=== PATIENT | female | born 1975 | race Caucasian/White ===

== ENCOUNTER → 2020-01-14 15:52 | Outpatient (CLI) | payer BC, SELFPAY ==
[2020-01-14 18:17] LABS: Hematocrit 24.3 % (37-47); Mean Corp Hgb Conc 24.7 g/dL (32-36); Mean Corpuscular Hgb 17.6 pg (27.0-32.0); Mean Corpuscular Volume 71.3 fL (81-99); Mean Platelet Vol. 11.3 fl (6.2-12.0); Platelet Count 418 K/mm3 (150-450); RBC Distribution Width CV 18.5 % (11.6-14.6); RBC Distribution Width SD 45.3 fl (35.1-43.9); Red Blood Count 3.41 M/mm3 (4.2-5.4); White Blood Count 4.1 K/mm3 (4.4-11.0)
[2020-01-15 13:16] LABS: Pathologist Review Reviewed
== END ==
PROVIDERS: Nurse Practitioner Family; PCP Family Medicine; Referring Provider Family Medicine; Visit Provider Family Medicine
DX: R53.83 Other fatigue (principal)
CPT/HCPCS: 36415; 85027

== ENCOUNTER → 2020-01-15 10:38 | Outpatient (CLI) | payer BC, SELFPAY ==
[2020-01-15 12:10] LABS: Absolute Lymphocyte Count 0.82 X10^3/uL (0.83-4.51); Absolute Neutrophil Count 3.2 X10^3/uL (2.0-7.7); Basophil# 0.05 X10^3/uL; Basophil% 1.1 % (0-1); Eosinophil# 0.04 X10^3/uL; Eosinophils% 0.9 % (0-5); Hematocrit 24.9 % (37-47); Hemoglobin 6.1 g/dL (12.0-15.0); Lymphocyte # 0.82 X10^3/ul (4.0); Lymphocyte % 18.3 % (19-41); Mean Corp Hgb Conc 24.5 g/dL (32-36); Mean Corpuscular Hgb 17.6 pg (27.0-32.0); Mean Corpuscular Volume 71.8 fL (81-99); Monocyte# 0.35 X10^3/uL; Monocyte% 7.8 % (0-10); NRBC Flagged by Analyzer 0 % (0-5); Neutrophil # 3.18 X10^3/uL (2.7-7.7); Neutrophil % 71.2 % (47-70); Platelet Count 430 K/mm3 (150-450); RBC Distribution Width CV 18.6 % (11.6-14.6); RBC Distribution Width SD 46.1 fl (35.1-43.9); Red Blood Count 3.47 M/mm3 (4.2-5.4); White Blood Count 4.5 K/mm3 (4.4-11.0)
[2020-01-15 12:32] LABS: Ferritin 2 ng/mL (8-252); Iron 10 ug/dL (50-170); Iron Binding Capacity,Total 395 ug/dL (250-450)
== END ==
PROVIDERS: PCP Family Medicine; Referring Provider Family Medicine; Visit Provider Family Medicine
DX: D64.9 Anemia, unspecified (principal)
CPT/HCPCS: 36415; 82728; 83540; 83550; 85025

== ENCOUNTER 2020-01-15 11:27 | Inpatient (IN) | payer BC, SELFPAY ==
[2020-01-15] VITALS (21 sets, daily range): BP systolic 117–140; BP diastolic 69–86; PULSE 61–100; RESP 14–18; TEMP 36.4–37; O2SAT 98–100; BMI 20.9; BMI 20.2
--- NOTE | 2020-01-15 11:57 | ED.DCSUM_ITS ---
History of Present Illness Informant: Patient Onset: Weeks - Several weeks. Context: Gradual Onset Timing: Continuous Quality: fatigue and lightheadedness Location: everywhere Current Severity: Severe Maximum Severity: Severe Worsened by: activity Relieved by: nothing Associated Symptoms: Fatigue and lightheadedness Narrative: 45-year-old female who denies any significant past medical history presents to the emergency department with abnormal outpatient labs. She has been feeling weak tired and fatigued for several weeks and it has progressively worsened she followed with her primary care who did labs yesterday called her this morning to tell her her hemoglobin was 6. She denies history of similar. Her mom had a history of iron deficiency anemia. Patient was only on iron when she was remotely. She has not had any melena or hematochezia, hematemesis, coffee-ground emesis, hematuria, nosebleeds or bruising. No fevers chills night sweats or weight loss. She has had some heavy bleeding with her periods but states that that is normal for her and it does not seem worse than her baseline. She has never had a blood transfusion. Denies any medications. She has not had chest pain or shortness of breath. She has been eating and drinking norm ally. Prior similar symptoms: No Recent Illness/Hospitalization: No <Harmeet Crow - Last Filed: 01/15/20 14:13> <Praful Reed - Last Filed: 01/15/20 14:21> Chief Complaint: Abn Labs Past Medical History Prior records reviewed: Yes Past Medical History: None Surgical History: no surgical history Lives: With Family Smoking Status: Never smoker Alcohol: Occasional Drugs: None - Family History Maternal Family History: Reports: No pertinent history Paternal Family History: Reports: Heart Disease <Harmeet Crow - Last Filed: 01/15/20 14:13> <Praful Reed - Last Filed: 01/15/20 14:21> - Allergies and Home Meds Allergies/Adverse Reactions: Allergies Penicillins Allergy (Verified 01/15/20 11:29) Rash Review of Systems All systems negative except as indicated General: Reports: - - Fatigue. Denies: Chills, Fever, Sweats Eyes: Denies: Visual changes - bilaterally, Blurred Vision - bilaterally, Diplopia ENT: Denies: Rhinorrhea, Sore throat Cardiovascular: Denies: Chest pain, Palpitations Respiratory: Denies: Dyspnea, Cough, Dyspnea on exertion, Orthopnea, Paroxysmal nocturnal dyspnea Gastrointestinal: Denies: Abdominal pain, Nausea, Vomiting, Diarrhea, Const ipation, Melena, Hematochezia Genitourinary: Denies: Dysuria, Hematuria, Frequency Musculoskeletal: Denies: Myalgias, Arthralgias, Back pain, Swelling, Extremity Pain Skin: Denies: Rash, Wounds Neurological: Denies: Headache, Weakness, Parasthesia, Numbness Hematologic: Denies: Easy bruising, Easy bleeding <Harmeet Crow - Last Filed: 01/15/20 14:13> Physical Exam Vital Signs/Narrative: Vital Signs Temp Pulse Resp BP Pulse Ox 01/15/20 11:27 97.5 F L 100 14 130/69 H 100 Inital Vital Signs reviewed: Yes General: Well nourished, Well developed, No Acute Distress Head: Normocephalic, Atraumatic Eyes: Perrl, EOMI ENT: Moist mucous membranes, No rhinorrhea Neck: Supple, Nontender Cardiovascular: Regular rate, Regular rhythm, No murmurs Respiratory: No distress, CTA bilaterally, Chest nontender Abdomen: Soft, Nontender, Nondistended, Normal bowel sounds Back: Nontender, Normal Inspection Extremities: Nontender, No edema Skin: No rash, Pallor Neurological: Alert, Oriented x3, Cranial nerves II-XII grossly intact, Normal Strength, Normal Sensation, Normal Gait Psychological: Normal affect, Normal Mood <Harmeet Crow - Last Filed: 01/15/20 14:13> Vital Signs/Narrative: Vital Signs Temp Pulse Resp BP Pulse Ox 01/15/20 11:27 97.5 F L 100 14 130/69 H 100 <Praful Reed - Last Filed: 01/15/20 14:21> Diagnostic/Tx/Re-eval Chest X-Ray - ED: 2 View, Read by ED Physician, Read by Radiologist, No Acute Disease - Rhythm Strip Rhythm Strip: Sinus Rhythm Rate: 100 Ectopy: None - EKG Initial EKG Interpretation: Sinus Rhythm, No Acute Injury Pattern - Medical Decision Making Patient presents with normal stable vital signs. EKG was sinus rhythm without any signs of acute ischemia. Laboratory work-up shows a hemoglobin of 5.9. Iron studies done as an outpatient yesterday revealed low iron. However the patient is extremely symptomatic she is lightheaded and dizzy she gets short of breath with exertion and we feel she would benefit from admission. Her heart enzymes are negative. Hospitalist agreed to admit the patient. She was transfused 2 units of packed red blood cells. She remains hemodynamically stable. <Harmeet Crow - Last Filed: 01/15/20 14:13> - Medical Decision Making Patient had outpatient labs drawn yesterday and was noted to have a hemoglobin of 6. She had additional labs drawn this morning and was then sent to the emergency department because she is feeling weakness dyspnea on exertion. She has been trying to work out but is been harder than normal for her. She denies any black or bloody stools. Given her work-up here she will be admitted for transfusion. She will be set up with general surgery for scope next week. I performed a history and physical examination of the patient and discussed management plan with the physician microbiology lab assistant. I reviewed the physician microbiology lab assistant's note and agree with the documented findings and plan of care. Praful Reed DO, <Praful Reed - Last Filed: 01/15/20 14:21> ED Disposition <Harmeet Crow - Last Filed: 01/15/20 14:13> <Praful Reed - Last Filed: 01/15/20 14:21> - Plan for ED Patient: Disposition: Acute Care Hospital [facility] Diagnosis: Iron deficiency anemia, Symptomatic anemia
[2020-01-15 12:27] LABS: Absolute Lymphocyte Count 0.86 X10^3/uL (0.83-4.51); Absolute Neutrophil Count 3.5 X10^3/uL (2.0-7.7); Basophil# 0.03 X10^3/uL; Basophil% 0.6 % (0-1); Eosinophil# 0.03 X10^3/uL; Eosinophils% 0.6 % (0-5); Hematocrit 23.9 % (37-47); Lymphocyte # 0.86 X10^3/ul (4.0); Mean Corp Hgb Conc 24.7 g/dL (32-36); Mean Corpuscular Hgb 17.4 pg (27.0-32.0); Mean Corpuscular Volume 70.5 fL (81-99); Mean Platelet Vol. 10.8 fl (6.2-12.0); Monocyte# 0.37 X10^3/uL; Monocyte% 7.7 % (0-10); NRBC Flagged by Analyzer 0 % (0-5); Neutrophil # 3.47 X10^3/uL (2.7-7.7); Neutrophil % 72.5 % (47-70); POSITIVE COUNT YES; Platelet Count 419 K/mm3 (150-450); RBC Distribution Width CV 18.1 % (11.6-14.6); RBC Distribution Width SD 45.1 fl (35.1-43.9); Red Blood Count 3.39 M/mm3 (4.2-5.4); White Blood Count 4.8 K/mm3 (4.4-11.0)
[2020-01-15 12:30] LABS: Hemoglobin 5.9 g/dL (12.0-15.0)
[2020-01-15 12:34] LABS: International Normalized Ratio 1.1; Partial Thromboplast Time 26.6 Seconds (24.1-36.2); Prothrombin Time (Protime)PT. 13.2 SECONDS (11.7-14.9)
[2020-01-15 12:38] LABS: Anion Gap 3 (5-15); BUN 12 mg/dL (7-18); BUN/Creat Ratio 17.2 RATIO (10-20); Calcium,Total 8.3 mg/dL (8.5-10.1); Chloride 111 mmol/L (98-107); EST Glomerular Filtration Rate 97 mL/min (>60); Est Glom Filt Rate - Afr Amer 118 mL/min (>60); Estimated Creatinine Clearance 96.46 ml/min; Glucose 78 mg/dL (74-106); Potassium 3.7 mmol/L (3.5-5.1); Sodium Level 141 mmol/L (136-145)
--- NOTE | 2020-01-15 12:45 | EKG12_ITS ---
Test Reason : ABNL LABS Blood Pressure : / mmHG Vent. Rate : 093 BPM Atrial Rate : 093 BPM P-R Int : 160 ms QRS Dur : 086 ms QT Int : 372 ms P-R-T Axes : 089 044 059 degrees QTc Int : 462 ms Normal sinus rhythm Normal ECG Confirmed by ALEXANDRE RAMOS, SAMMY ([id number]), video news editor LUDWIN JON ([id number]) on 01/22/2020 11:22:31 A M Referred By: HETAL Confirmed By:SALLY SCHROEDER MD
--- NOTE | 2020-01-15 12:46 | RAD_ITS ---
STUDY: X-RAY CHEST REASON FOR EXAM: Female, 45 years old. Dyspnea, pt here for low hgb. pt also states that she is dizzy and her dr told her she may need a blood transfusion TECHNIQUE: Single AP portable view of the chest. COMPARISON: None. FINDINGS: The lungs are clear and expanded. There is nodular opacity at the right lung base that likely represent a nipple shadow. There is no demonstrated pleural abnormality. Normal size heart. Normal mediastinum and mir. Normal visualized pulmonary arteries. Normal visualized aortic arch and descending thoracic aorta. Normal visualized thoracic spine. There is healed fracture of the right clavicle. There is no demonstrated abnormality of the visualized soft tissue structures of the upper abdomen. RAD/Chest 1 View (Portable) IMPRESSION: No acute chest disease. Electronically Signed: Carlos Rhodes, at 13:03 EDT Tel , Service support ,
[2020-01-15 13:03] LABS: Internal QC Validated? YES +Cl - CLEAR BKGD; Pregnancy, Serum, hCG Quali. NEGATIVE Negative
--- NOTE | 2020-01-15 13:56 | HP.PCM_ITS ---
Problem List (1) Microcytic anemia Status: Acute (2) Iron deficiency anemia Status: Acute History of Present Illness Date of Admission: 01/15/20 Chief Complaint: Low hemoglobin, weakness, shortness of breath. The patient is a 45 year old F with no significant past medical history was referred to ER by her PCP for low hemoglobin. Yesterday, patient had blood work done and she was found to have hemoglobin of 6 g/dL. She was instructed to come to ED today for evaluation. Patient complained of exertional shortness of breath that has been going on for several years, it comes on when she climb the stairs, relieved with rest, associated with dizziness and profound fatigue and without relieving factors. She reported occasional heartburn but nothing significant. She mentioned that she has been having those symptoms for long time. She denied epistaxis, hemoptysis, hematemesis, melena, hematochezia, hematuria or skin bruises. She mentioned that her.'s are usually 5 to 6 days and with moderate amount of bleeding and she currently has had period With regular amount of bleeding. She denied personal or family history of bleeding disorders. She admitted using occasional ibuprofen for body aches and pains, she takes around 400 mg couple of days a week. In the emergency department, her vital signs were stable. Her routine blood work was remarkable for hemoglobin of 5.9 g/dL, MCV was 70.5. Platelet count, INR and pro time were normal. BMP was unremarkable. EKG revealed normal sinus rhythm, normal QRS, normal QTC, no acute segment changes or cardiac arrhythmias. Troponin was negative. Yeste rday, she had iron studies that revealed serum iron of 10, ferritin of 2, TIBC of 395. Her serum test was negative. She is being admitted for acute symptomatic iron deficiency anemia for blood transfusion. Past Medical History Allergies Penicillins Allergy (Verified 01/15/20 11:29) Rash Home Medications: Ambulatory Orders Medication Instructions Recorded NK 01/15/20 Surgical History: - - section. Dilatation and curettage. 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 Denies: Anorexia, Chills, Fever Eyes: Denies: Blurred vision, Double vision, Drainage, Redness HEENT: Denies: Difficulty Hearing, Ear Pain, Eye Pain, Nasal Congestion, Sore Throat Cardiovascular: Reports: Light Headedness. Denies: Chest Pain, Chest Pressure, Chest Tightness, Heaviness, Palpitations, Syncope Respiratory: Reports: Shortness of breath upon exertion. Denies: Cough, Hemoptysis, Pleuritic Pain, Sputum production, Wheezing Gastrointestinal: Denies: Abdominal Pain, Constipation, Diarrhea, Hematemesis, Hematochezia, Nausea, Melena, Vomiting Genitourinary: Denies: Dysuria, Frequency, Hematuria Musculoskeletal: Denies: Arm Pain, Back Pain, Foot Pain Skin: Denies: Dryness, Rash Neurological: Denies: Balance problems, Blurred vision, Double vision, Change in Speech, Slurred speech, Confusion, Incoordination, Numbness Psychiatric: Denies: Anxiety, Depression Endocrine: Denies: Change in Body Habitus, Polydipsia, Polyuria VTE Information - Inpt Only VTE Present on Admission: No VTE Mechan Device Prophylaxis: None VTE Pharm Prophylaxis ordered?: No Patient Problems: Active and Suspected Problems Microcytic anemia (Acute) Iron deficiency anemia (Acute) - Physical Exam Vitals/I&O's: Vital Signs Temp Pulse Resp BP Pulse Ox 98.5 F 92 18 136/80 H 100 01/15/20 13:52 01/15/20 13:52 01/15/20 13:52 01/15/20 13:52 01/15/20 13:52 Oxygen Delivery Method Room Air Weight: 130 lb Body Mass Index (BMI) 20.9 Intake and Output for Last 24 Hours 01/13/20 01/14/20 01/15/20 23:59 23:59 23:59 Intake Total 0 / 0 Balance 0 / 0 General: Alert, Oriented x3, Cooperative, No apparent distress, - - Very pale, no jaundice. HEENT: Atraumatic, PERRLA, EOMI, Normocephalic Oral: Moist Mucosa, No Gingival or Mucosal Lesions/ Ulcerations Neck: Supple, No JVD, Negative Carotid Bruits, Trachea Midline, Thyroid Normal Size and Texture Lungs: Clear to auscultation, Normal air movement, No rhonchi, No wheeze, No rales Cardiovascular: Regular rate, Regular Rhythm, Normal S1, Normal S2, No murmurs, PMI Normal Abdomen: Bowel Sounds Present, Soft, Non Tender, Non-Distended, No Hepato- splenomegaly Extremities: No clubbing, No cyanosis, No edema Skin: No rashes, No breakdown Lymphatic: No Cervical, Supraclavicular, or Inguinal Adenopathy Neurological: Cranial nerves II-XII grossly intact, Motor Exam 5/5 strength throughout Psych/Mental Status: Normal Affect, Appropriate, Alert and oriented to time, place, person, mood and affect Laboratory Results 01/15/20 12:00: WBC 4.8, RBC 3.39 L, Hgb 5.9 L*, Hct 23.9 L, MCV 70.5 L, MCH 17.4 L, MCHC 24.7 L, RDW Std Deviation 45.1 H, RDW Coeff of Marci 18.1 H, Plt Count 419, MPV 10.8, Immature Gran % (Auto) 0.600, Neut % (Auto) 72.5 H, Lymph % (Auto) 18.0 L, [place] % (Auto) 7.7, Eos % (Auto) 0.6, Baso % (Auto) 0.6, Absolute Neuts (auto) 3.5, Absolute Lymphs (auto) 0.86, Nucleated RBC % 0, Diff Path Review September01/15/20 12:00: Sodium 141, Potassium 3.7, Chloride 111 H, Carbon Dioxide 27.0, Anion Gap 3 L, BUN 12, Creatinine 0.70, Estim Creat Clear Calc 96.46, Est GFR (MDRD) Af Amer 118, Est GFR (MDRD) Non-Af 97, BUN/Creatinine Ratio 17.2, Glucose 78, Calcium 8.3 L 01/15/20 12:00: Blood Type O POSITIVE, Antibody Screen NEGATIVE 01/15/20 12:00: PT 13.2, INR 1.1, APTT 26.6 01/15/20 12:00: Serum , Qual NEGATIVE 01/15/20 12:00: Crossmatch See Detail 01/15/20 12:00: Troponin I < 0.015 Clinical Impression(s) from Imaging Studies Chest X-Ray 01/15/20 12:46 IMPRESSION: No acute chest disease. Electronically Signed: Carlos Rhodes, at 13:03 EDT Tel , Service support , Assessment/Plan All Active Problems Microcytic anemia (Acute) Iron deficiency anemia (Acute) This is a 45 years old female patient was sent to the ER by her PCPs office because of low hemoglobin with symptoms of exertional shortness of breath, dizziness and weakness that has been going on for long time, found to have acute iron deficiency anemia and she is being admitted for evaluation and treatment. #1 acute microcytic/iron deficiency symptomatic anemia: Hemoglobin is 5.9 g/dL. Her vital signs are stable. She denies any bleeding from body orifices. She does have her period currently but her regular period is around 5 days with moderate amount of bleeding and nothing usual. She admitted using ibuprofen intermittently. Denied melena or hematochezia. Yesterday, she had blood work and her iron was 10 and ferritin was 2. Her platelet count, pro time and INR were normal. She is not actively bleeding. Plan: Admit to PCU, cardiac monitoring, gentle IV fluids for hydration, check serum TSH, start p.o. iron supplement, transfuse total of 3 months of packed RBCs, stool for occult blood, start IV Protonix twice daily, general surgery consult, repeat CBC and BMP tomorrow morning. #2 DVT prophylaxis: Low risk patient, no prophylaxis indicated. Ambulate. This note was generated with Ampulse dictation software. It may contain incorrect words, spelling, and punctuation that were not noted in checking the note before signing. Inpatient E&M: 57402 Init Hosp L2
--- NOTE | 2020-01-15 14:14 | PCM.CONS.GEN ---
Reason for Consult Date of Consultation: 01/15/20 History of Present Illness: The patient is a 45 year old F presented after labs showed anemia. The patient reports she has been tired fatigued with dizziness for few months to a year. The patient does not have any abdominal pain or blood in her stool. She denies melena or nausea or vomiting. She has never had scopes in the past. Past Medical History Allergies Penicillins Allergy (Verified 01/15/20 11:29) Rash Home Medications: Ambulatory Orders Medication Instructions Recorded NK 01/15/20 Surgical History: - - section. Dilatation and curettage. 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 Denies: Anorexia, Fever HEENT: Denies: Difficulty Hearing, Difficulty Swallowing Cardiovascular: Reports: Palpitations. Denies: Chest Pain Respiratory: Denies: Cough, Shortness of Breath Gastrointestinal: Denies: Abdominal Pain, Hematemesis, Hematochezia, Nausea, Melena, Vomiting Genitourinary: Denies: Dysuria Skin: Denies: Jaundice Neurological: Denies: Balance problems Hematologic/ Lymphatic: Reports: Anemia Patient Problems: Active and Suspected Problems Microcytic anemia (Acute) Iron deficiency anemia (Acute) - Physical Exam Vitals/I&O's: Vital Signs Temp Pulse Resp BP Pulse Ox 98.6 F 92 18 134/83 H 100 01/15/20 13:57 01/15/20 13:57 01/15/20 13:57 01/15/20 13:57 01/15/20 13:57 Oxygen Delivery Method Room Air Weight: 130 lb Body Mass Index (BMI) 20.9 Intake and Output for Last 24 Hours 01/13/20 01/14/20 01/15/20 23:59 23:59 23:59 Intake Total 0 / 0 Balance 0 / 0 General: Alert, Oriented x3 Lungs: Normal air movement Abdomen: Soft, Non Tender, Non-Distended Laboratory Results 01/15/20 12:00: WBC 4.8, RBC 3.39 L, Hgb 5.9 L*, Hct 23.9 L, MCV 70.5 L, MCH 17.4 L, MCHC 24.7 L, RDW Std Deviation 45.1 H, RDW Coeff of Marci 18.1 H, Plt Count 419, MPV 10.8, Immature Gran % (Auto) 0.600, Neut % (Auto) 72.5 H, Lymph % (Auto) 18.0 L, [place] % (Auto) 7.7, Eos % (Auto) 0.6, Baso % (Auto) 0.6, Absolute Neuts (auto) 3.5, Absolute Lymphs (auto) 0.86, Nucleated RBC % 0, Diff Path Review September01/15/20 12:00: Sodium 141, Potassium 3.7, Chloride 111 H, Carbon Dioxide 27.0, Anion Gap 3 L, BUN 12, Creatinine 0.70, Estim Creat Clear Calc 96.46, Est GFR (MDRD) Af Amer 118, Est GFR (MDRD) Non-Af 97, BUN/Creatinine Ratio 17.2, Glucose 78, Calcium 8.3 L 01/15/20 12:00: Blood Type O POSITIVE, Antibody Screen NEGATIVE 01/15/20 12:00: PT 13.2, INR 1.1, APTT 26.6 01/15/20 12:00: Serum , Qual NEGATIVE 01/15/20 12:00: Crossmatch See Detail 01/15/20 12:00: Troponin I < 0.015 Assessment/Plan All Active Problems Microcytic anemia (Acute) Iron deficiency anemia (Acute) 45-year-old female with iron deficiency anemia 1. The patient has iron deficiency anemia. She denies any gross blood loss. I have asked for an occult blood test as well as a COVID test in anticipation of outpatient endoscopy. The patient is being admitted for observation and as long as she is not grossly losing any blood I will perform an upper and lower endoscopy on her next week. I discussed this with her in detail. Plan for next Saturday. I will see her tomorrow and discussed bowel prep with her. 2. I explained endoscopy in detail to the patient. I explained the risks including but not limited to stroke or heart attack with anesthesia, perforation of the GI tract, bleeding, infection. I explained that any of these could necessitate further emergency surgery. The patient understands and all questions were answered sufficiently. The patient wishes to proceed with procedure. We discussed the current risks associated with COVID-19. While it is understood that there is a community spread of COVID-19, the risk of dipesh COVID-19 while at [facility] ([facility]) is very low; however, the risk cannot be completely mitigated because of the community spread of the disease. We discussed in detail the risk of exposure to and/or potential harm posed by the COVID-19 virus with having a surgery/procedure at this time versus the risk of delaying the surgery/procedure. It is not possible to know either the risk of delaying the surgery or procedure or chance of getting an infection with perfect accuracy, but a joint decision was made to proceed at this time with the scheduled surgery/procedure as indicated on the consent form. Patient was notified that we will need to comply with any screening or testing [facility] wishes to perform or that surgery may be delayed for any positive results. Harmeet Llanos MD Pager: [facility] [address] [place] [address] [address] [place] [address] Office:
[2020-01-15 16:07] LABS: Thyroid Stim Hormone (TSH) 0.04 uIU/mL (0.358-3.74)
[2020-01-15] MEDS: Acetaminophen 325 MG Tablet 650 MG PO (18:03)
[2020-01-15] MEDS: Ferrous Sulfate 325 MG Tablet PO (18:03)
[2020-01-15] MEDS: 0.9% Normal Saline 1,000 ML 75 ML IV (21:59)
[2020-01-15] MEDS: MELATONIN 3 MG TABLET PO (23:58)
[2020-01-16] MEDS: Acetaminophen 325 MG Tablet 650 MG PO (00:03)
[2020-01-16 00:06] VITALS: BP 111/63; PULSE 60; RESP 16; TEMP 36.8; O2SAT 98
[2020-01-16 03:00] VITALS: PULSE 66
[2020-01-16 05:07] VITALS: BP 115/71; PULSE 57; RESP 16; TEMP 36.7; O2SAT 99
[2020-01-16 06:24] LABS: Absolute Lymphocyte Count 1.25 X10^3/uL (0.83-4.51); Absolute Neutrophil Count 2.6 X10^3/uL (2.0-7.7); Basophil# 0.06 X10^3/uL; Basophil% 1.3 % (0-1); Eosinophil# 0.11 X10^3/uL; Eosinophils% 2.4 % (0-5); Hematocrit 31.7 % (37-47); Hemoglobin 8.8 g/dL (12.0-15.0); Lymphocyte # 1.25 X10^3/ul (4.0); Lymphocyte % 27.8 % (19-41); Mean Corp Hgb Conc 27.8 g/dL (32-36); Mean Corpuscular Hgb 21.1 pg (27.0-32.0); Mean Corpuscular Volume 75.8 fL (81-99); Monocyte% 11.1 % (0-10); NRBC Flagged by Analyzer 0 % (0-5); Neutrophil # 2.56 X10^3/uL (2.7-7.7); POSITIVE MORPHOLOGY YES; Platelet Count 365 K/mm3 (150-450); RBC Distribution Width CV 20.2 % (11.6-14.6); RBC Distribution Width SD 54.7 fl (35.1-43.9); Red Blood Count 4.18 M/mm3 (4.2-5.4); White Blood Count 4.5 K/mm3 (4.4-11.0)
[2020-01-16 06:28] LABS: Differential Indicated SCAN CRITERIA MET
[2020-01-16 06:41] VITALS: PULSE 64
[2020-01-16 06:56] LABS: Microcytosis 3+
[2020-01-16 06:57] LABS: Anion Gap 3 (5-15); BUN 11 mg/dL (7-18); BUN/Creat Ratio 15.6 RATIO (10-20); Chloride 112 mmol/L (98-107); EST Glomerular Filtration Rate 97 mL/min (>60); Est Glom Filt Rate - Afr Amer 117 mL/min (>60); Estimated Creatinine Clearance 93.05 ml/min; Glucose 78 mg/dL (74-106); Hypochromasia 3+; Ovalocyte 2+; Potassium 3.4 mmol/L (3.5-5.1); Schistocytes 1+; Sodium Level 142 mmol/L (136-145)
[2020-01-16 07:18] VITALS: O2SAT 95
[2020-01-16] MEDS: Ferrous Sulfate 325 MG Tablet PO (07:34)
--- NOTE | 2020-01-16 08:04 | PCM.PN.SRG ---
Patient Problems: Active and Suspected Problems Symptomatic anemia (Acute) Microcytic anemia (Acute) Iron deficiency anemia (Acute) Subjective: Patient feels much better today. Still no gross blood per stool - Physical Exam Vitals/I&O's: Vital Signs Temp Pulse Resp BP Pulse Ox 98.0 F 64 16 115/71 99 01/16/20 05:07 01/16/20 06:41 01/16/20 05:07 01/16/20 05:07 01/16/20 05:07 Oxygen Delivery Method Room Air Weight: 125 lb 6.4 oz Body Mass Index (BMI) 20.2 Intake and Output for Last 24 Hours 01/14/20 01/15/20 01/16/20 23:59 23:59 23:59 Intake Total 1772 / 1772 100 / 100 Balance 1772 / 1772 100 / 100 General: Alert, Oriented x3 Neck: No JVD Cardiovascular: Regular rate, Regular Rhythm Abdomen: Soft, Non Tender, Non-Distended Microbiology Past 72 Hours 01/15/20 14:56 Stool Stool Occult Blood (AVA) - Final Occult Blood Positive Laboratory Results 01/15/20 12:00: WBC 4.8, RBC 3.39 L, Hgb 5.9 L*, Hct 23.9 L, MCV 70.5 L, MCH 17.4 L, MCHC 24.7 L, RDW Std Deviation 45.1 H, RDW Coeff of Marci 18.1 H, Plt Count 419, MPV 10.8, Immature Gran % (Auto) 0.600, Neut % (Auto) 72.5 H, Lymph % (Auto) 18.0 L, [place] % (Auto) 7.7, Eos % (Auto) 0.6, Baso % (Auto) 0.6, Absolute Neuts (auto) 3.5, Absolute Lymphs (auto) 0.86, Nucleated RBC % 0, Diff Path Review September01/15/20 12:00: Sodium 141, Potassium 3.7, Chloride 111 H, Carbon Dioxide 27.0, Anion Gap 3 L, BUN 12, Creatinine 0.70, Estim Creat Clear Calc 96.46, Est GFR (MDRD) Af Amer 118, Est GFR (MDRD) Non-Af 97, BUN/Creatinine Ratio 17.2, Glucose 78, Calcium 8.3 L 01/15/20 12:00: Blood Type O POSITIVE, Antibody Screen NEGATIVE 01/15/20 12:00: PT 13.2, INR 1.1, APTT 26.6 01/15/20 12:00: Serum , Qual NEGATIVE 01/15/20 12:00: Crossmatch See Detail 01/15/20 12:00: Troponin I < 0.015 01/15/20 12:00: TSH 0.04 L 01/15/20 12:00: Crossmatch See Detail 01/15/20 14:36: COVID-19 (DEBORAH) Pending 01/16/20 05:05: WBC 4.5, RBC 4.18 L, Hgb 8.8 L, Hct 31.7 L, MCV 75.8 L D, MCH 21.1 L, MCHC 27.8 L D, RDW Std Deviation 54.7 H, RDW Coeff of Marci 20.2 H, Plt Count 365, MPV 11.0, Immature Gran % (Auto) 0.400, Neut % (Auto) 57.0, Lymph % (Auto) 27.8, [place] % (Auto) 11.1 H, Eos % (Auto) 2.4, Baso % (Auto) 1.3 H, Absolute Neuts (auto) 2.6, Absolute Lymphs (auto) 1.25, Nucleated RBC % 0, Hypochromasia 3+, Microcytosis 3+, Ovalocytes 2+, Schistocytes 1+ 01/16/20 05:05: Sodium 142, Potassium 3.4 L, Chloride 112 H, Carbon Dioxide 27.0, Anion Gap 3 L, BUN 11, Creatinine 0.70, Estim Creat Clear Calc 93.05, Est GFR (MDRD) Af Amer 117, Est GFR (MDRD) Non-Af 97, BUN/Creatinine Ratio 15.6, Glucose 78, Calcium 8.0 L Current Medications Acetaminophen (Tylenol) 650 mg PO Q6H PRN PRN PRN Reason: Pain Score 1-10/Temp > 100.7 F Last Admin: 01/16/20 00:03 Dose: 650 mg Documented by: Ferrous Sulfate (Ferrous Sulfate) 325 mg PO TIDCM [facility] Last Admin: 01/16/20 07:34 Dose: 325 mg Documented by: Sodium Chloride () 1,000 mls @ 75 mls/hr IV .[id number] [facility] Last Admin: 01/15/20 21:59 Dose: 75 mls/hr Documented by: Pantoprazole Sodium 40 mg/ (Sodium Chloride) 110 mls @ 330 mls/hr IV Q12 [facility] Last Infusion: 01/15/20 22:05 Dose: 0 mls/hr Documented by: Sodium Chloride () 500 mls @ 15 mls/hr IV PRN PRN PRN Reason: Blood Transfusion Sodium Chloride () 250 mls @ 15 mls/hr IV .[id number] PRN PRN Reason: Saline Flush Sodium Chloride () 250 mls @ 15 mls/hr IV .[id number] PRN PRN Reason: Additional IVPB Infusion Melatonin (Melatonin) 3 mg PO QHS PRN PRN Reason: INSOMNIA Last Admin: 01/15/20 23:58 Dose: 3 mg Documented by: Ondansetron HCl (Zofran) 4 mg IV Q8H PRN PRN PRN Reason: NAUSEA/VOMITING Senna/Docusate Sodium (Senokot-S, Emelina-Colace) 2 tablet PO BID PRN PRN PRN Reason: Constipation Sodium Chloride () 10 - 40 ml IV UD PRN PRN Reason: SALINE FLUSH Medical Necessity - Tobacco Use Smoking Status: Never smoker Assessment/Plan All Active Problems Symptomatic anemia (Acute) Microcytic anemia (Acute) Iron deficiency anemia (Acute) 45-year-old female with iron deficiency anemia 1. Patient feels much better after transfusions. Still no gross blood per rectum. I gave her bowel prep instructions today and I will schedule her for EGD and colonoscopy this coming Saturday. She may be discharged home. Harmeet Llanos MD Pager: [facility] [address] [place] [address], [address] [place] [address] Office:
[2020-01-16 09:01] VITALS: BP 128/76; PULSE 86; RESP 16; TEMP 36.7; O2SAT 100
[2020-01-16 09:36] LABS: Free T3 2.6 pg/mL (2.18-3.98); T4 Free Direct 1.07 ng/dL (0.76-1.46)
--- NOTE | 2020-01-16 10:31 | CASEMGMT ---
Addendum entered by Arsen Gaines 01/16/20 10:42: Patient is to f/u with surgery for endoscopy in a week. Original Note: RN CM Assessment Note Intro role of CM to patient in room. Pt is independent, denies dc needs. Presentation: outpatient blood work completed and pt had low hemoglobin Diagnosis: anemia, H/H 5.9/23.9, 3 units PRBC PCP: Dr. Palomino Insurance: [place]. Preferred Pharmacy: [facility] Prescription Benefit: yes LNOK: Franc Stewart Living Arrangements: Lives independently, no care needs. Tranportation: drives DME: none Patient DC Goals: Home DC Plan: Home on discharge. Poornima CORONADO RN ACM
--- NOTE | 2020-01-16 10:40 | DCINST_ITS ---
- Discharge Diagnoses Current Active Problems: Current Active and Chronic Problems Symptomatic anemia (Acute) Microcytic anemia (Acute) Iron deficiency anemia (Acute) You will use the following diet at home:: No restrictions Your food should be the consistency of: Regular Your liquids should be the consistency of: Regular/Thin Discharge Activity: Return to Normal Activity Call your doctor if you observe: Shortness of breath, Dizziness, Fainting spells Allergies/Adverse Reactions: Allergies Penicillins Allergy (Verified 01/15/20 11:29) Rash Medications to take at Discharge Acetaminophen [Tylenol Tablet] 650 mg PO Q6H PRN PRN tablet 01/16/20 Ferrous Sulfate 325 mg PO TIDCM #30 tab 01/16/20 Pantoprazole Sodium [Protonix] 40 mg PO BID #60 tab 01/16/20 The following prescriptions were given: Ferrous Sulfate 325 mg PO TIDCM #30 tab Transmission Status: Pending to [facility]/pharmacy #[id number] Pantoprazole Sodium [Protonix] 40 mg PO BID #60 tab Transmission Status: Pending to [facility]/pharmacy #[id number] Primary Care Physician: Nikolai Palomino MD [Primary Care Provider] - Please follow up with your Primary Care Physician in: 1-2 weeks Test Results: Test results from this visit will be discussed in further detail at your follow- up appointment, if applicable. Please Follow Up With: Harmeet Llanos MD When: 1 week Proposed Discharge Date: 01/16/20
--- NOTE | 2020-01-16 11:37 | PCM.DC.SUM ---
<Rajiv Peralta - Last Filed: 01/16/20 11:37> Discharge Date and Diagnosis - Problem List Patient Problems: Active and Suspected Problems Microcytic anemia (Acute) Date of Admission: 01/15/20 Date of Discharge: 01/16/20 - Primary Discharge Diagnosis Acute Problems: Active Problems Iron deficiency anemia with positive Hemoccult stools, presumed GI bleed, unclear etiology GERD Hospital Course and Treatment Imaging Results: RAD/Chest 1 View (Portable) IMPRESSION: No acute chest disease. Consults: Viet - Gen Surg Operations: None Procedures: None Summary of Care Provided: Hospital Course: The patient is a 45 year old F who presents to the emergency room with abnormal labs-low hemoglobin found by her PCP. She had been having some weakness and shortness of breath at home. She was found to have a hemoglobin of 6. She came to the emergency room and hemoglobin was 5.9. She also had iron studies tested as an outpatient and was found to have a ferritin of 2 and iron level of 10. She was significantly microcytic. She had a Hemoccult that was positive. She had not been having any black, tarry, or bloody stools. She had been taking NSAIDs [id number] at home. She denied any significant abdominal pain. She did report intermittent acid reflux. She was placed on Protonix twice daily. She was admitted to the PCU on telemetry. She was transfused with 3 units of packed red blood cells with adequate response in hemoglobin. She was seen by general surgery who recommended outpatient endoscopy. She was advised that she discontinue all NSAID use. She was discharged on Protonix twice daily, iron replacement as well as vitamin C, and discharge to home in stable condition. She will follow-up with general surgery next week, and should follow-up with her PCP in 1 to 2 weeks. This patient was seen by Rajiv Peralta PA-C under the supervision of Doctor Doreen. [] Patient Problems: Active and Suspected Problems Microcytic anemia (Acute) - Physical Exam Vitals/I&O's: Vital Signs Temp Pulse Resp BP Pulse Ox 98.0 F 86 16 128/76 H 100 01/16/20 09:01 01/16/20 09:01 01/16/20 09:01 01/16/20 09:01 01/16/20 09:01 Oxygen Delivery Method Room Air Weight: 125 lb 6.4 oz Body Mass Index (BMI) 20.2 Intake and Output for Last 24 Hours 01/14/20 01/15/20 01/16/20 23:59 23:59 23:59 Intake Total 1772 Balance 1772 General: Alert, Oriented x3, Cooperative HEENT: Atraumatic, PERRLA, EOMI, Normocephalic Neck: Supple, No JVD, Negative Carotid Bruits Lungs: Clear to auscultation, Normal air movement Cardiovascular: Regular rate, No murmurs Abdomen: Bowel Sounds Present, Soft, Non Tender Extremities: No edema, Capillary Refill Less than 3 Seconds Skin: No rashes, No breakdown Musculoskeletal: No Tenderness to Palpation of Joints or Extremities Neurological: Cranial nerves II-XII grossly intact Psych/Mental Status: Normal Affect, Appropriate, Alert and oriented to time, place, person, mood and affect Microbiology Past 72 Hours 01/15/20 14:56 Stool Stool Occult Blood (AVA) - Final Occult Blood Positive Laboratory Results 01/15/20 12:00: WBC 4.8, RBC 3.39 L, Hgb 5.9 L*, Hct 23.9 L, MCV 70.5 L, MCH 17.4 L, MCHC 24.7 L, RDW Std Deviation 45.1 H, RDW Coeff of Marci 18.1 H, Plt Count 419, MPV 10.8, Immature Gran % (Auto) 0.600, Neut % (Auto) 72.5 H, Lymph % (Auto) 18.0 L, Churchill % (Auto) 7.7, Eos % (Auto) 0.6, Baso % (Auto) 0.6, Absolute Neuts (auto) 3.5, Absolute Lymphs (auto) 0.86, Nucleated RBC % 0, Diff Path Review September01/15/20 12:00: Sodium 141, Potassium 3.7, Chloride 111 H, Carbon Dioxide 27.0, Anion Gap 3 L, BUN 12, Creatinine 0.70, Estim Creat Clear Calc 96.46, Est GFR (MDRD) Af Amer 118, Est GFR (MDRD) Non-Af 97, BUN/Creatinine Ratio 17.2, Glucose 78, Calcium 8.3 L 01/15/20 12:00: Blood Type O POSITIVE, Antibody Screen NEGATIVE 01/15/20 12:00: PT 13.2, INR 1.1, APTT 26.6 01/15/20 12:00: Serum , Qual NEGATIVE 01/15/20 12:00: Crossmatch See Detail 01/15/20 12:00: Troponin I < 0.015 01/15/20 12:00: TSH 0.04 L 01/15/20 12:00: Crossmatch See Detail 01/15/20 14:36: COVID-19 (DEBORAH) Pending 01/16/20 05:05: WBC 4.5, RBC 4.18 L, Hgb 8.8 L, Hct 31.7 L, MCV 75.8 L D, MCH 21.1 L, MCHC 27.8 L D, RDW Std Deviation 54.7 H, RDW Coeff of Marci 20.2 H, Plt Count 365, MPV 11.0, Immature Gran % (Auto) 0.400, Neut % (Auto) 57.0, Lymph % (Auto) 27.8, Churchill % (Auto) 11.1 H, Eos % (Auto) 2.4, Baso % (Auto) 1.3 H, Absolute Neuts (auto) 2.6, Absolute Lymphs (auto) 1.25, Nucleated RBC % 0, Hypochromasia 3+, Microcytosis 3+, Ovalocytes 2+, Schistocytes 1+ 01/16/20 05:05: Sodium 142, Potassium 3.4 L, Chloride 112 H, Carbon Dioxide 27.0, Anion Gap 3 L, BUN 11, Creatinine 0.70, Estim Creat Clear Calc 93.05, Est GFR (MDRD) Af Amer 117, Est GFR (MDRD) Non-Af 97, BUN/Creatinine Ratio 15.6, Glucose 78, Calcium 8.0 L 01/16/20 05:05: Free T4 1.07, Free T3 pg/dL 2.6 Discharge Diet: Low fat/ Low Cholesterol, 2000 mg Sodium Diet Discharge Activity: Return to Normal Activity Call your doctor if you observe: Shortness of breath, Dizziness, Fainting spells Home Medications: Medications to take at Discharge Acetaminophen [Tylenol Tablet] 650 mg PO Q6H PRN PRN tab 01/16/20 Ascorbic Acid [Vitamin C] 500 mg PO TID #90 tab 01/16/20 Ferrous Sulfate 325 mg PO TIDCM #30 tab 01/16/20 Pantoprazole Sodium [Protonix] 40 mg PO BID #60 tab 01/16/20 Following Prescriptions Were Given to Patient: Ferrous Sulfate 325 mg PO TIDCM #30 tab Transmission Status: Received by [facility]/pharmacy #[id number] Pantoprazole Sodium [Protonix] 40 mg PO BID #60 tab Transmission Status: Received by [id number] Ascorbic Acid [Vitamin C] 500 mg PO TID #90 tab Transmission Status: Received by [id number] Primary Care Physician: Nikolai Palomino MD [Primary Care Provider] - Please follow up with your Primary Care Physician in: 1-2 weeks Please Follow Up With: Harmeet Llanos MD When: 1 week Disposition: Home Minutes spent on discharge:: 35 Patient Condition:: Stable Medical Necessity - Tobacco Use Smoking Status: Never smoker Meaningful Use Info Meaningful Use Diagnoses (Choose all that apply): None applicable <Chirag Logan F - Last Filed: 01/16/20 11:50> Discharge Date and Diagnosis - Primary Discharge Diagnosis Acute Problems: Active Problems Microcytic anemia (Acute) Hospital Course and Treatment Summary of Care Provided: The patient is a 45 year old F [] - Physical Exam Vitals/I&O's: Vital Signs Temp Pulse Resp BP Pulse Ox 98.0 F 86 16 128/76 H 100 01/16/20 09:01 01/16/20 09:01 01/16/20 09:01 01/16/20 09:01 01/16/20 09:01 Oxygen Delivery Method Room Air Weight: 125 lb 6.4 oz Body Mass Index (BMI) 20.2 Intake and Output for Last 24 Hours 01/14/20 01/15/20 01/16/20 23:59 23:59 23:59 Intake Total 1773 / 1773 210 / 210 Balance 1773 / 1773 210 / 210 Microbiology Past 72 Hours 01/15/20 14:56 Stool Stool Occult Blood (AVA) - Final Occult Blood Positive Laboratory Results 01/15/20 12:00: WBC 4.8, RBC 3.39 L, Hgb 5.9 L*, Hct 23.9 L, MCV 70.5 L, MCH 17.4 L, MCHC 24.7 L, RDW Std Deviation 45.1 H, RDW Coeff of Marci 18.1 H, Plt Count 419, MPV 10.8, Immature Gran % (Auto) 0.600, Neut % (Auto) 72.5 H, Lymph % (Auto) 18.0 L, Churchill % (Auto) 7.7, Eos % (Auto) 0.6, Baso % (Auto) 0.6, Absolute Neuts (auto) 3.5, Absolute Lymphs (auto) 0.86, Nucleated RBC % 0, Diff Path Review September01/15/20 12:00: Sodium 141, Potassium 3.7, Chloride 111 H, Carbon Dioxide 27.0, Anion Gap 3 L, BUN 12, Creatinine 0.70, Estim Creat Clear Calc 96.46, Est GFR (MDRD) Af Amer 118, Est GFR (MDRD) Non-Af 97, BUN/Creatinine Ratio 17.2, Glucose 78, Calcium 8.3 L 01/15/20 12:00: Blood Type O POSITIVE, Antibody Screen NEGATIVE 01/15/20 12:00: PT 13.2, INR 1.1, APTT 26.6 01/15/20 12:00: Serum , Qual NEGATIVE 01/15/20 12:00: Crossmatch See Detail 01/15/20 12:00: Troponin I < 0.015 01/15/20 12:00: TSH 0.04 L 01/15/20 12:00: Crossmatch See Detail 01/15/20 14:36: COVID-19 (DEBORAH) Pending 01/16/20 05:05: WBC 4.5, RBC 4.18 L, Hgb 8.8 L, Hct 31.7 L, MCV 75.8 L D, MCH 21.1 L, MCHC 27.8 L D, RDW Std Deviation 54.7 H, RDW Coeff of Marci 20.2 H, Plt Count 365, MPV 11.0, Immature Gran % (Auto) 0.400, Neut % (Auto) 57.0, Lymph % (Auto) 27.8, Churchill % (Auto) 11.1 H, Eos % (Auto) 2.4, Baso % (Auto) 1.3 H, Absolute Neuts (auto) 2.6, Absolute Lymphs (auto) 1.25, Nucleated RBC % 0, Hypochromasia 3+, Microcytosis 3+, Ovalocytes 2+, Schistocytes 1+ 01/16/20 05:05: Sodium 142, Potassium 3.4 L, Chloride 112 H, Carbon Dioxide 27.0, Anion Gap 3 L, BUN 11, Creatinine 0.70, Estim Creat Clear Calc 93.05, Est GFR (MDRD) Af Amer 117, Est GFR (MDRD) Non-Af 97, BUN/Creatinine Ratio 15.6, Glucose 78, Calcium 8.0 L 01/16/20 05:05: Free T4 1.07, Free T3 pg/dL 2.6 Addendum: Dr. Logan I personally examined the patient and reviewed the chart. I agree with the above. 45-year-old female presents with shortness of breath and acute microcytic anemia secondary to severe iron deficiency with an iron level of 10 and a ferritin of 2 as well as a positive fecal occult. She states that she takes Advil most days secondary to muscle soreness. She was transfused 3 units and responded appropriately from 5.8-8.8. She feels much better today would like to go home. I did offer her to stay till the afternoon to recheck her hemoglobin to make sure he was stable but she would prefer to go home. She was started on p.o. iron as well as a PPI secondary to the Hemoccult and her NSAID use. She will follow-up with general surgery as an outpatient for colonoscopy and possible EGD. She was also started on vitamin C to help with the absorption of iron secondary to her PPI use. I discussed the plan for discharge today and she expressed understanding the risks and benefits of going home. She is to come back to the hospital or call her PCP if she is to develop any lightheadedness or shortness of breath or fatigue. Or if she notices a large GI bleed. Otherwise she is to follow-up with PCP in 3 to 5 days for follow-up CBC next week. Inpatient E&M: 56251 Disch Hosp
[2020-01-18 12:53] LABS: Pathologist Review Reviewed
== END 2020-01-16 11:01 | disposition home or self-care (01) | DRG 812 ==
LOC: ED 12:33 → PCU 14:05
PROVIDERS: Physician Assistant; Surgery; Admitting Provider Hospitalist; Emergency Provider Physician Assistant Medical; PCP Family Medicine; Visit Provider Family Medicine
DX: D50.9 Iron deficiency anemia, unspecified (principal); K92.2 Gastrointestinal hemorrhage, unspecified; K21.9 Gastro-esophageal reflux disease without esophagitis
CPT/HCPCS: 36415; 71045; 80048; 82274; 84439; 84443; 84481; 84484; 84703; 85025; 85610; 85730; 86850; 86900; 86901; 86920; 87635; 93005; 94799; 99285; J7030; J7040; P9016; A4216; U0003

== ENCOUNTER 2020-01-22 08:48 | Day surgery (SDC) | payer BC, SELFPAY ==
[2020-01-15 15:33] VITALS: BMI 20.2
--- NOTE | 2020-01-22 | GASB_PTH ---
PATIENT: CARA CACERES I LOC: EN U#:[id number] AGE/SX: 45/F ROOM: RE01/22/[address]: Dr. Harmeet Llanos MD : 1975 BED: DIS: 01/22/2020 SPEC #: [id number] RECD: 01/22/20 13:48 STATUS: MICHEAL FERNANDA #: [id number] KENNEDY: 01/22/20 00:[address]: Harmeet Llanos DEPT: SURGICAL PATHOLOGY RECD BY: Tyson Fontenot ENTERED: 01/22/20 13:49 SP TYPE: Gastric Bx OTHR DR: Dr. Nikolai Palomino MD Tissues: A - Gastric mucous membrane B - Gastric mucous membrane Procedures: Special Stain Group II Surgery Specimen Level IV Alcian Blue/PAS (control) HEADER OPERATION: Colonoscopy, EGD ([facility]) PRE-OP DIAGNOSIS: Anemia TISSUE SUBMITTED: A - Antrum biopsy for H. pylori and path, B - GE junction biopsy MICROSCOPIC DIAGNOSIS A. Antrum biopsy: Mild gastritis. See microscopic description and comment. B. GE junction, biopsy: A fragment of gastroesophageal mucosa with moderate chronic inflammation. Intestinal metaplasia (goblet cell metaplasia) is not identified. See comment. SJ:ignacio 01/25/20 COMMENT A. The results of immunohistochemistry for Helicobacter pylori will be reported separately ([id number]). B. Alcian blue/PAS stain with matched control is used in the evaluation of the specimen. MICROSCOPIC DESCRIPTION Slides are reviewed. A. The specimen shows fragments of gastric mucosa with chronic inflammatory cell infiltrates in the lamina propria consisting of lymphocytes and plasma cells, consistent with mild chronic gastritis. GROSS DESCRIPTION A - Received in fixative is one container labeled with the patient's name and designated antrum biopsy. The specimen consists of two irregular fragments of light gonzalez soft tissue that in aggregate measure 0.5 x 0.5 x 0.1 cm. The specimen is totally submitted in one cassette. B - Received in fixative is one container labeled with the patient's name and designated GE junction biopsy. The specimen consists of one irregular fragment of light gonzalez soft tissue that measures 0.6 x 0.5 x 0.1 cm. The specimen is totally submitted in one cassette. / AM:ignacio 01/22/20 TC:3 CPT: 93025 x2, 63300
[2020-01-22 09:09] VITALS: BP 132/76; PULSE 88; RESP 15; TEMP 37.2; O2SAT 100; BMI 20.9
--- NOTE | 2020-01-22 09:09 | HP.PCM_ITS ---
Problem List (1) Iron deficiency anemia Status: Acute Qualifiers: Iron deficiency anemia type: unspecified iron deficiency Qualified Code(s): D50.9 - Iron deficiency anemia, unspecified History and Physical Date of Admission: 01/22/20 Reason for Consult Date of Consultation: 01/15/20 History of Present Illness: The patient is a 45 year old F presented after labs showed anemia. The patient reports she has been tired fatigued with dizziness for few months to a year. The patient does not have any abdominal pain or blood in her stool. She denies melena or nausea or vomiting. She has never had scopes in the past. Past Medical History Allergies Penicillins Allergy (Verified 01/15/20 11:29) Rash Home Medications: Ambulatory Orders Medication Instructions Recorded NK 01/15/20 Surgical History: - - section. Dilatation and curettage. 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 Denies: Anorexia, Fever HEENT: Denies: Difficulty Hearing, Difficulty Swallowing Cardiovascular: Reports: Palpitations. Denies: Chest Pain Respiratory: Denies: Cough, Shortness of Breath Gastrointestinal: Denies: Abdominal Pain, Hematemesis, Hematochezia, Nausea, Me ramon, Vomiting Genitourinary: Denies: Dysuria Skin: Denies: Jaundice Neurological: Denies: Balance problems Hematologic/ Lymphatic: Reports: Anemia Patient Problems: Active and Suspected Problems Microcytic anemia (Acute) Iron deficiency anemia (Acute) - Physical Exam Vitals/I&O's: Vital Signs Temp Pulse Resp BP Pulse Ox 98.6 F 92 18 134/83 H 100 01/15/20 13:57 01/15/20 13:57 01/15/20 13:57 01/15/20 13:57 01/15/20 13:57 Oxygen Delivery Method Room Air Weight: 130 lb Body Mass Index (BMI) 20.9 Intake and Output for Last 24 Hours 01/13/20 01/14/20 01/15/20 23:59 23:59 23:59 Intake Total 0 / 0 Balance 0 / 0 General: Alert, Oriented x3 Lungs: Normal air movement Abdomen: Soft, Non Tender, Non-Distended Laboratory Results 01/15/20 12:00: WBC 4.8, RBC 3.39 L, Hgb 5.9 L*, Hct 23.9 L, MCV 70.5 L, MCH 17.4 L, MCHC 24.7 L, RDW Std Deviation 45.1 H, RDW Coeff of Marci 18.1 H, Plt Count 419, MPV 10.8, Immature Gran % (Auto) 0.600, Neut % (Auto) 72.5 H, Lymph % (Auto) 18.0 L, [place] % (Auto) 7.7, Eos % (Auto) 0.6, Baso % (Auto) 0.6, Absolute Neuts (auto) 3.5, Absolute Lymphs (auto) 0.86, Nucleated RBC % 0, Diff Path Review September01/15/20 12:00: Sodium 141, Potassium 3.7, Chloride 111 H, Carbon Dioxide 27.0, Anion Gap 3 L, BUN 12, Creatinine 0.70, Estim Creat Clear Calc 96.46, Est GFR (MDRD) Af Amer 118, Est GFR (MDRD) Non-Af 97, BUN/Creatinine Ratio 17.2, Glucose 78, Calcium 8.3 L 01/15/20 12:00: Blood Type O POSITIVE, Antibody Screen NEGATIVE 01/15/20 12:00: PT 13.2, INR 1.1, APTT 26.6 01/15/20 12:00: Serum , Qual NEGATIVE 01/15/20 12:00: Crossmatch See Detail 01/15/20 12:00: Troponin I < 0.015 Assessment/Plan All Active Problems Microcytic anemia (Acute) Iron deficiency anemia (Acute) 45-year-old female with iron deficiency anemia 1. The patient has iron deficiency anemia. She denies any gross blood loss. I have asked for an occult blood test as well as a COVID test in anticipation of outpatient endoscopy. The patient is being admitted for observation and as long as she is not grossly losing any blood I will perform an upper and lower endoscopy on her next week. I discussed this with her in detail. Plan for next Saturday. I will see her tomorrow and discussed bowel prep with her. 2. I explained endoscopy in detail to the patient. I explained the risks including but not limited to stroke or heart attack with anesthesia, perforation of the GI tract, bleeding, infection. I explained that any of these could necessitate further emergency surgery. The patient understands and all questions were answered sufficiently. The patient wishes to proceed with procedure. We discussed the current risks associated with COVID-19. While it is understood that there is a community spread of COVID-19, the risk of dipesh COVID-19 while at [facility] ([facility]) is very low; however, the risk cannot be completely mitigated because of the community spread of the disease. We discussed in detail the risk of exposure to and/or potential harm posed by the COVID-19 virus with having a surgery/procedure at this time versus the risk of delaying the surgery/procedure. It is not possible to know either the risk of delaying the surgery or procedure or chance of getting an infection with perfect accuracy, but a joint decision was made to proceed at this time with the scheduled surgery/procedure as indicated on the consent form. Patient was notified that we will need to comply with any screening or testing [facility] wishes to perform or that surgery may be delayed for any positive results. Harmeet Llanos MD Pager: [facility] [address] [place] [address], [address] [place] [address] Office: 01/15/20 [phone] <Electronically signed by Harmeet sanderson MD> Date _ Harmeet Llanos MD I have re-examined the patient. There are no clinical changes since date of exam.
[2020-01-22] MEDS: Lactated Ringers 1,000 ML 100 ML IV (09:20)
--- NOTE | 2020-01-22 09:45 | IMM_PTH ---
PATIENT: CARA CACERES I LOC: EN U#:[id number] AGE/SX: 45/F ROOM: RE01/22/[address]: Dr. Harmeet Llanos MD : 1975 BED: DIS: 01/22/2020 SPEC #: [id number] RECD: 01/22/20 14:19 STATUS: MICHEAL RESamir #: [id number] KENNEDY: 01/22/20 09:[address]: Harmeet Llanos DEPT: IMMUNOHISTOCHEMISTRY RECD BY: Jordyn Escobar ENTERED: 01/22/20 14:19 SP TYPE: IMMUNO OTHR DR: Dr. Nikolai Palomino MD Tissues: A - Stomach, NOS Procedures: H Pylori (initial) PHYSICIAN & INSTITUTION [place] [id number] SPECIMEN INFORMATION: Tissue Source: A - Antrum biopsy Clinical Info: Anemia Specimen Number: [id number] CPT code: 99565 METHODOLOGY: Deparaffinized sections of prefer/formalin-fixed tissue or PAP/DQ stained slides are incubated with monoclonal/polyclonal antibodies/oligonucleotide probes. Localization is made via biotin free immunoperoxidase method. Appropriate controls are performed and reacted as expected. Results on target cell population are indicated in the following table: RESULTS: ANTIBODY / CLONE RESULT Block A H Pylori (polyclonal) negative These tests were developed and their performance characteristics determined by [facility]. They may not have been cleared or approved by the [place].S. Food and Drug Administration. The FDA has determined that such clearance or approval is not necessary. INTERPRETATION: A. Antrum biopsy: Negative for Helicobacter pylori organisms. BESSY:ignacio 01/25/20
[2020-01-22 10:00] VITALS: BP 101/62; BP 132/76; PULSE 73; RESP 16; TEMP 36.4; O2SAT 100
[2020-01-22 10:05] VITALS: BP 110/83; BP 132/76; PULSE 64; RESP 16; O2SAT 100
--- NOTE | 2020-01-22 10:08 | OP.CCLET_ITS ---
01/22/2020 Nikolai Palomino MD [address] [id number] Re : Colonoscopy procedure for Kelsy Palacios Dear Dr. Palomino This procedure was performed on Wednesday, January 22, 2020. My impressions and recommendations are as follows: Impressions : - The entire examined colon is normal on direct and retroflexion views. - No specimens collected. Recommendations : - Discharge patient to home. - Resume previous diet. - Continue present medications. - Repeat colonoscopy in 10 years for screening purposes. My findings are described in the full procedure note, which is enclosed. If I can be of further assistance, please feel free to contact me at Doctor phone number(s): , Work: . Sincerely, Harmeet Llanos MD 01/22/2020 10:08:11 AM This report has been signed electronically.
--- NOTE | 2020-01-22 10:08 | OP.COLON_ITS ---
Patient Name: Kelsy Palacios Procedure Date: 01/22/2020 9:37 AM Date of : 1975 Age: 45 Procedure: Colonoscopy Indications: Iron deficiency anemia Providers: Harmeet Llanos MD Referring MD: Nikolai Palomino MD Medicines: Monitored Anesthesia Care Patient Profile: This is a 45 year old female. Refer to note in patient chart for documentation of history and physical. Last Colonoscopy: none. The patient's first colonoscopy is today. Complications: No immediate complications. Procedure: Pre-Anesthesia Assessment: - Prior to the procedure, a History and Physical was performed, and patient medications and allergies were reviewed. The patient's tolerance of previous anesthesia was also reviewed. The risks and benefits of the procedure and the sedation options and risks were discussed with the patient. All questions were answered, and informed consent was obtained. Prior Anticoagulants: The patient has taken no previous anticoagulant or antiplatelet agents. After reviewing the risks and benefits, the patient was deemed in satisfactory condition to undergo the procedure. After I obtained informed consent, the scope was passed under direct vision. Throughout the procedure, the patient's blood pressure, pulse, and oxygen saturations were monitored continuously. The colonoscope was introduced through the anus and advanced to the cecum, identified by appendiceal orifice and ileocecal valve. The colonoscopy was performed without difficulty. The patient tolerated the procedure well. The quality of the bowel preparation was good. Scope In: 9:38:52 AM Scope Withdrawal Time 0 hours 6 minutes 11 seconds Scope Out: 9:55:46 AM Total Procedure Duration Time 0 hours 16 minutes 54 seconds Findings: The entire examined colon appeared normal on direct and retroflexion views. Impression: - The entire examined colon is normal on direct and retroflexion views. - No specimens collected. Recommendation: - Discharge patient to home. - Resume previous diet. - Continue present medications. - Repeat colonoscopy in 10 years for screening purposes. Procedure Code(s): --- Professional --- 54960, Colonoscopy, flexible; diagnostic, including collection of specimen(s) by brushing or washing, when performed (separate procedure) Diagnosis Code(s): --- Professional --- D50.9, Iron deficiency anemia, unspecified CPT copyright 2017 [employer]. All rights reserved. The codes documented in this report are preliminary and upon ramp flight attendant review may be revised to meet current compliance requirements. Harmeet Llanos MD 01/22/2020 10:08:11 AM This report has been signed electronically. Number of Addenda: 0 Note Initiated On: 01/22/2020 9:37 AM
[2020-01-22 10:10] VITALS: BP 108/71; BP 132/76; PULSE 68; RESP 16; O2SAT 100
--- NOTE | 2020-01-22 10:10 | OP.EGD_ITS ---
Patient Name: Kelsy Palacios Procedure Date: 01/22/2020 9:25 AM Date of : 1975 Age: 45 Procedure: Upper GI endoscopy Indications: Iron deficiency anemia Providers: Harmeet Llanos MD Referring MD: Nikolai Palomino MD Medicines: Monitored Anesthesia Care Patient Profile: This is a 45 year old female. Refer to note in patient chart for documentation of history and physical. Complications: No immediate complications. Estimated blood loss: Minimal. Procedure: Pre-Anesthesia Assessment: - Prior to the procedure, a History and Physical was performed, and patient medications and allergies were reviewed. The patient's tolerance of previous anesthesia was also reviewed. The risks and benefits of the procedure and the sedation options and risks were discussed with the patient. All questions were answered, and informed consent was obtained. Prior Anticoagulants: The patient has taken no previous anticoagulant or antiplatelet agents. After reviewing the risks and benefits, the patient was deemed in satisfactory condition to undergo the procedure. After obtaining informed consent, the endoscope was passed under direct vision. Throughout the procedure, the patient's blood pressure, pulse, and oxygen saturations were monitored continuously. The Endoscope was introduced through the mouth, and advanced to the second part of duodenum. The upper GI endoscopy was accomplished without difficulty. The patient tolerated the procedure well. Scope In: 9:33:47 AM Scope Out: 9:36:33 AM Total Procedure Duration Time 0 hours 2 minutes 46 seconds Findings: The esophagus was normal. The examined duodenum was normal. Mild inflammation characterized by erosions was found in the stomach. Biopsies were taken with a cold forceps for Helicobacter pylori testing. Impression: - Normal esophagus. - Normal examined duodenum. - Gastritis. Biopsied. Recommendation: - Discharge patient to home. - Resume previous diet. - Use Prilosec (omeprazole) 40 mg PO daily for 2 months. - Continue present medications. Procedure Code(s): --- Professional --- 06495, Esophagogastroduodenoscopy, flexible, transoral; with biopsy, single or multiple Diagnosis Code(s): --- Professional --- K29.70, Gastritis, unspecified, without bleeding D50.9, Iron deficiency anemia, unspecified CPT copyright 2017 [employer]. All rights reserved. The codes documented in this report are preliminary and upon data coder operator review may be revised to meet current compliance requirements. Harmeet Llanos MD 01/22/2020 10:10:02 AM This report has been signed electronically. Number of Addenda: 0 Note Initiated On: 01/22/2020 9:25 AM
--- NOTE | 2020-01-22 10:10 | OP.CCLET_ITS ---
01/22/2020 Nikolai Palomino MD [address] [phone] Re : Upper GI endoscopy procedure for Kelsy Palacios Dear Dr. Palomino This procedure was performed on Wednesday, January 22, 2020. My impressions and recommendations are as follows: Impressions : - Normal esophagus. - Normal examined duodenum. - Gastritis. Biopsied. Recommendations : - Discharge patient to home. - Resume previous diet. - Use Prilosec (omeprazole) 40 mg PO daily for 2 months. - Continue present medications. My findings are described in the full procedure note, which is enclosed. If I can be of further assistance, please feel free to contact me at Doctor phone number(s): , Work: . Sincerely, Harmeet Llanos MD 01/22/2020 10:10:02 AM This report has been signed electronically.
[2020-01-22 10:15] VITALS: BP 114/79; BP 132/76; PULSE 60; RESP 16; TEMP 36.3; O2SAT 100
[2020-01-22 10:23] VITALS: BP 132/76
== END 2020-01-22 10:45 | disposition home or self-care (01) ==
LOC: EN 08:49 → AC 08:51
PROVIDERS: PCP Family Medicine; Referring Provider Family Medicine; Visit Provider Surgery
PROC: 0DJD8ZZ Inspection of Lower Intestinal Tract, Via Natural or Artificial Opening Endoscopic (ICD-10-PCS; CPT 45378; principal; 2020-01-22 09:40)
DX: K29.70 Gastritis, unspecified, without bleeding (principal); D50.9 Iron deficiency anemia, unspecified; Z88.0 Allergy status to penicillin
CPT/HCPCS: 43239; 45378; 88305; 88313; 88342; J7120; J2405

== ENCOUNTER → 2020-02-10 17:23 | Outpatient (CLI) | payer BC, SELFPAY ==
[2020-01-28 08:58] VITALS: BMI 20.1
[2020-02-10 17:38] LABS: Absolute Lymphocyte Count 1.77 X10^3/uL (0.83-4.51); Absolute Neutrophil Count 4.4 X10^3/uL (2.0-7.7); Basophil# 0.05 X10^3/uL; Basophil% 0.7 % (0-1); Eosinophil# 0.11 X10^3/uL; Eosinophils% 1.6 % (0-5); Hematocrit 39.2 % (37-47); Hemoglobin 11.6 g/dL (12.0-15.0); Lymphocyte # 1.77 X10^3/ul (4.0); Mean Corp Hgb Conc 29.6 g/dL (32-36); Mean Corpuscular Hgb 24.3 pg (27.0-32.0); Mean Corpuscular Volume 82.2 fL (81-99); Mean Platelet Vol. 10.8 fl (6.2-12.0); Monocyte# 0.47 X10^3/uL; Monocyte% 6.9 % (0-10); NRBC Flagged by Analyzer 0 % (0-5); Neutrophil # 4.37 X10^3/uL (2.7-7.7); Neutrophil % 64.4 % (47-70); POSITIVE MORPHOLOGY YES; Platelet Count 313 K/mm3 (150-450); RBC Distribution Width CV 24.1 % (11.6-14.6); RBC Distribution Width SD 68.9 fl (35.1-43.9); Red Blood Count 4.77 M/mm3 (4.2-5.4); White Blood Count 6.8 K/mm3 (4.4-11.0)
[2020-02-10 17:40] LABS: Differential Indicated SCAN CRITERIA MET
[2020-02-10 18:20] LABS: Differential Comment SCANNED
== END ==
PROVIDERS: PCP Family Medicine; Visit Provider Family Medicine
DX: D64.9 Anemia, unspecified (principal)
CPT/HCPCS: 36415; 85025

== ENCOUNTER → 2020-04-29 10:05 | Outpatient (CLI) | payer SELFPAY ==
[2020-01-28 08:58] VITALS: BMI 20.1
[2020-04-29 12:46] LABS: Absolute Lymphocyte Count 1.39 X10^3/uL (0.83-4.51); Basophil# 0.06 X10^3/uL; Eosinophil# 0.07 X10^3/uL; Eosinophils% 1.2 % (0-5); Hematocrit 41.7 % (37-47); Hemoglobin 13.2 g/dL (12.0-15.0); Lymphocyte # 1.39 X10^3/ul (4.0); Lymphocyte % 23.3 % (19-41); Mean Corp Hgb Conc 31.7 g/dL (32-36); Mean Corpuscular Hgb 29.5 pg (27.0-32.0); Mean Corpuscular Volume 93.3 fL (81-99); Mean Platelet Vol. 11.6 fl (6.2-12.0); Monocyte# 0.44 X10^3/uL; Monocyte% 7.4 % (0-10); NRBC Flagged by Analyzer 0 % (0-5); Neutrophil # 3.97 X10^3/uL (2.7-7.7); Neutrophil % 66.6 % (47-70); Platelet Count 295 K/mm3 (150-450); RBC Distribution Width CV 13.2 % (11.6-14.6); Red Blood Count 4.47 M/mm3 (4.2-5.4)
[2020-04-29 13:04] LABS: ALB/GLOB Ratio 1.1 RATIO (0.9-2.4); AST(SGOT) 10 U/L (15-37); Alanine Aminotransfer ALT/SGPT 21 U/L (13-56); Albumin, Serum 3.8 g/dL (3.2-5.0); Alkaline Phosphatase 57 U/L (45-117); Anion Gap 7 (5-15); BUN 13 mg/dL (7-18); BUN/Creat Ratio 14.5 RATIO (10-20); Calcium,Total 9.1 mg/dL (8.5-10.1); Chloride 106 mmol/L (98-107); EST Glomerular Filtration Rate 73 mL/min (>60); Est Glom Filt Rate - Afr Amer 88 mL/min (>60); Ferritin 8 ng/mL (8-252); Globulin 3.6 g/dL (2.2-4.2); Glucose 78 mg/dL (74-106); Iron 318 ug/dL (50-170); Iron Binding Capacity,Total 379 ug/dL (250-450); PERCENT IRON SATURATION 83.9 % (15.0-55.0); Potassium 3.7 mmol/L (3.5-5.1); Protein, Total 7.4 g/dL (6.4-8.2); Sodium Level 139 mmol/L (136-145)
== END ==
PROVIDERS: PCP Family Medicine; Referring Provider Family Medicine; Visit Provider Family Medicine
DX: D64.9 Anemia, unspecified (principal)
CPT/HCPCS: 36415; 80053; 82728; 83540; 83550; 85025

== ENCOUNTER → 2021-05-04 08:48 | Outpatient (CLI) | payer BC, SELFPAY ==
[2021-05-04 11:02] LABS: Absolute Lymphocyte Count 0.89 X10^3/uL (0.83-4.51); Absolute Neutrophil Count 2.7 X10^3/uL (2.0-7.7); Basophil# 0.07 X10^3/uL; Basophil% 1.8 % (0-1); Eosinophil# 0.03 X10^3/uL; Eosinophils% 0.8 % (0-5); Hematocrit 27.8 % (37-47); Hemoglobin 6.8 g/dL (12.0-15.0); Lymphocyte # 0.89 X10^3/ul (0.83-4.51); Lymphocyte % 22.5 % (19-41); Mean Corp Hgb Conc 24.5 g/dL (32-36); Mean Corpuscular Hgb 16.9 pg (27.0-32.0); Mean Platelet Vol. 10.3 fl (6.2-12.0); Monocyte# 0.29 X10^3/uL; Monocyte% 7.3 % (0-10); NRBC Flagged by Analyzer 0 % (0-5); Neutrophil # 2.67 X10^3/uL (2.7-7.7); Neutrophil % 67.3 % (47-70); Platelet Count 529 K/mm3 (150-450); RBC Distribution Width CV 19.6 % (11.6-14.6); RBC Distribution Width SD 48.2 fl (35.1-43.9); Red Blood Count 4.03 M/mm3 (4.2-5.4)
[2021-05-04 11:20] LABS: Anion Gap 7 (5-15); BUN 10 mg/dL (7-18); BUN/Creat Ratio 13.6 RATIO (10-20); Chloride 109 mmol/L (98-107); Cholesterol 181 mg/dL (200); Creatinine, Serum 0.73 mg/dL (0.55-1.02); EST Glomerular Filtration Rate 91 mL/min (>60); Est Glom Filt Rate - Afr Amer 111 mL/min (>60); Ferritin 1 ng/mL (8-252); Glucose 95 mg/dL (74-106); High Density Lipoprotein 80 mg/dL; Iron 11 ug/dL (50-170); Iron Binding Capacity,Total 469 ug/dL (250-450); PERCENT IRON SATURATION 2.3 % (15.0-55.0); Potassium 3.7 mmol/L (3.5-5.1); Sodium Level 140 mmol/L (136-145); Thyroid Stim Hormone (TSH) 1.79 uIU/mL (0.358-3.74); Triglycerides 67 mg/dL; Very Low Density Lipoprotein 13 mg/dL (5-40)
== END ==
PROVIDERS: PCP Family Medicine; Referring Provider Family Medicine; Visit Provider Family Medicine
DX: Z00.00 Encounter for general adult medical examination without abnormal findings (principal); R42 Dizziness and giddiness; D64.9 Anemia, unspecified
CPT/HCPCS: 36415; 80048; 80061; 82728; 83540; 83550; 84443; 85025

== ENCOUNTER → 2021-05-05 08:09 | Outpatient (CLI) | payer BC, SELFPAY ==
[2021-05-05] VITALS (8 sets, daily range): BP systolic 108–137; BP diastolic 70–87; PULSE 62–102; RESP 16; TEMP 36.8–37.4; O2SAT 100; BMI 20.8
[2021-05-05] MEDS: Acetaminophen 325 MG Tablet 650 MG PO (08:23)
[2021-05-05] MEDS: 0.9% NaCl Peripheral Flush Adult/Peds IV (08:24)
== END ==
LOC: MEDOUTP 08:09
PROVIDERS: PCP Family Medicine; Referring Provider Family Medicine; Visit Provider Family Medicine
DX: D64.9 Anemia, unspecified (principal)
CPT/HCPCS: 36415; 36430; 86644; 86850; 86900; 86901; 86920; 86922; J7040; P9040; A4216

== ENCOUNTER → 2021-05-08 11:44 | Outpatient (CLI) | payer BC, SELFPAY ==
[2021-05-08 14:59] LABS: Absolute Lymphocyte Count 1.19 X10^3/uL (0.83-4.51); Absolute Neutrophil Count 4.9 X10^3/uL (2.0-7.7); Basophil# 0.07 X10^3/uL; Eosinophil# 0.04 X10^3/uL; Eosinophils% 0.6 % (0-5); Hematocrit 35.3 % (37-47); Hemoglobin 9.3 g/dL (12.0-15.0); Lymphocyte # 1.19 X10^3/ul (0.83-4.51); Lymphocyte % 17.7 % (19-41); Mean Corp Hgb Conc 26.3 g/dL (32-36); Mean Corpuscular Hgb 19.3 pg (27.0-32.0); Mean Platelet Vol. 9.8 fl (6.2-12.0); Monocyte# 0.46 X10^3/uL; Monocyte% 6.8 % (0-10); NRBC Flagged by Analyzer 0 % (0-5); Neutrophil # 4.92 X10^3/uL (2.7-7.7); Neutrophil % 73.2 % (47-70); POSITIVE MORPHOLOGY YES; Platelet Count 352 K/mm3 (150-450); RBC Distribution Width CV 22.1 % (11.6-14.6); RBC Distribution Width SD 54.2 fl (35.1-43.9); Red Blood Count 4.83 M/mm3 (4.2-5.4); White Blood Count 6.7 K/mm3 (4.4-11.0)
[2021-05-08 15:04] LABS: Differential Indicated SCAN CRITERIA MET; Mean Corpuscular Volume 73.1 fL (81-99)
[2021-05-08 15:39] LABS: Anisocytosis 2+; Hypochromasia 2+; Ovalocyte RARE; Platelet Estimate ADEQUATE (ADEQ); Polychromasia RARE
== END ==
PROVIDERS: PCP Family Medicine; Visit Provider Family Medicine
DX: D64.9 Anemia, unspecified (principal)
CPT/HCPCS: 36415; 85025

== ENCOUNTER 2021-07-20 09:39 | Day surgery (SDC) | payer BC, SELFPAY ==
[2021-07-19 10:47] LABS: Hematocrit 42.3 % (37-47); Hemoglobin 13.5 g/dL (12.0-15.0); Mean Corp Hgb Conc 31.9 g/dL (32-36); Mean Corpuscular Hgb 27.8 pg (27.0-32.0); Mean Platelet Vol. 10.3 fl (6.2-12.0); Platelet Count 280 K/mm3 (150-450); RBC Distribution Width CV 15.3 % (11.6-14.6); RBC Distribution Width SD 45.9 fl (35.1-43.9); Red Blood Count 4.86 M/mm3 (4.2-5.4); White Blood Count 5.5 K/mm3 (4.4-11.0)
[2021-07-19 10:56] LABS: Prothrombin Time (Protime)PT. 12.9 SECONDS (11.7-14.9)
[2021-07-19 10:57] LABS: Partial Thromboplast Time 27.7 Seconds (24.1-36.2)
[2021-07-19 11:10] LABS: Magnesium 2.4 mg/dL (1.6-2.6)
[2021-07-20] VITALS (11 sets, daily range): BP systolic 91–139; BP diastolic 51–94; PULSE 57–76; RESP 16–18; TEMP 36.4–36.8; O2SAT 99–100; BMI 20.6
--- NOTE | 2021-07-20 | HYST_PTH ---
PATIENT: CARA CACERES I LOC: [facility] [place] U#:[id number] AGE/SX: 46/F ROOM: RE07/20/[address]: Dr. Jennifer Leahy DO : 1975 BED: DIS: 07/20/2021 SPEC #: [id number] RECD: 07/21/21 10:12 STATUS: MICHEAL FERNANDA #: [id number] KENNEDY: 07/20/21 00:[address]: Jennifer Leahy DEPT: SURGICAL PATHOLOGY RECD BY: Tyson Fontenot ENTERED: 07/21/21 10:12 SP TYPE: HYSTERECT OTHR DR: Dr. Nikolai Palomino MD Tissues: Uterus, NOS Procedures: Surgery Specimen Level V HEADER OPERATION: Hysterectomy, LAVH, salpingectomy, cystoscopy PRE-OP DIAGNOSIS: Menorrhagia, adenomyosis TISSUE SUBMITTED: Bilateral fallopian tubes, cervix, uterus MICROSCOPIC DIAGNOSIS Bilateral fallopian tubes, cervix and uterus, hysterectomy and bilateral salpingectomy: Cervix ? mild chronic cystic cervicitis. Endometrium ? secretory endometrium. Myometrium ? intramural leiomyomas (largest measuring 1.4 cm in greatest dimension). - Focal superficial adenomyosis. Bilateral fallopian tubes (received in multiple pieces) - no pathologic diagnosis. BESSY:ignacio 07/24/2021 MICROSCOPIC DESCRIPTION Slides are reviewed. GROSS DESCRIPTION Received in fixative is one container labeled with the patient's name and designated uterus. The specimen consists of a uterus with attached cervix measuring 11 x 8 x 5 cm and weighing 162.7 gm. Also present free in the container are three irregular fragments of tubular and cystic structures ranging in size from 2 to 2.5 cm. One fragment contains a metallic clip consistent with Filshie clip and is intact. The ectocervix is unremarkable. The endocervical canal measures 4 cm in length and is grossly unremarkable. The triangular endometrial cavity measures 4.2 x 4 cm. The velvety, light gonzalez endometrium measures up to 0.2 cm in thickness. The myometrium measures 2.2 cm in average thickness and contains multiple rubbery nodules ranging in size from 0.7 to 1.4 cm. Social Worker Psychiatric sections are submitted in ten cassettes as follows: 1 - anterior cervix, 2 - posterior cervix, 3 & 4 - anterior uterine wall, 5 & 6 - posterior uterine wall, 7 & 8 - myometrial nodules, 9 & 10 - fragments of tissue free in container (totally submitted). / AM:ignacio 07/21/2021 TC:1 CPT: 22883
[2021-07-20] MEDS: dexAMETHasone 10 MG/ML Vial 8 MG IV (07:00)
[2021-07-20 10:34] LABS: Internal QC Validated? YES +Cl - CLEAR BKGD; Pregnancy, Urine Negative Negative
[2021-07-20] MEDS: Gabapentin 600 MG Tablet PO (10:43)
[2021-07-20] MEDS: Enoxaparin 40 MG/0.4 ML Syringe SC (10:43)
[2021-07-20] MEDS: Celecoxib 200 MG Capsule 400 MG PO (10:43)
[2021-07-20] MEDS: Phenazopyridine 95 MG Tablet 190 MG PO (10:43)
[2021-07-20] MEDS: Acetaminophen 500 MG Tablet 1000 MG PO (10:43)
[2021-07-20] MEDS: Lactated Ringers 1,000 ML 40 ML IV (10:45)
[2021-07-20] MEDS: Scopolamine 1mg/72hr Patch 1 PATCH TD (10:45)
[2021-07-20 11:16] LABS: Bedside Glucose 69 mg/dL (70-110)
[2021-07-20] MEDS: Bupivacaine Mpf 0.5% 30 ML VIAL (12:50)
[2021-07-20] MEDS: Lactated Ringers @ 70 MLS/HR 70 ML IV ×2 (13:15→18:42)
[2021-07-20] MEDS: Lidocaine 1%/Epi 1:200 (30ml) 30 ML AMPUL (14:00)
--- NOTE | 2021-07-20 16:09 | PCM.DC ---
Discharge Instructions Diet Discharge Diet: No restrictions Activity Discharge Activity: May Not Drive (Until you are no longer taking pain medication, and until you feel strong enough to slam on a break or turn a steering wheel sharply) and May Shower May resume sexual activity in: 6 weeks Ice area for (Minutes): 15 Weight Bearing Status: Weight bearing as tolerated Lifting Restrictions: Nothing heavier than 5-10 lbs for 6 weeks Additional Activity Instructions:: No tampons, intercourse, hot tubs, pools, tub baths for 6 weeks Dressing / Incision Call your doctor if your incision/area has: Sudden Increased Bleeding, Increased Pain/ Swelling, Increased Redness, Foul Smelling Discharge and Swelling at the incision site Call your doctor if you observe: Fever of 101 or Higher, Coldness, Increased Pain, Numbness or Tingling, Change in Color, Inability to urinate, Inability to have a bowel movement, Using more than 1 pad per hour, Shortness of breath, Dizziness, Fainting spells, Swelling in the ankles, Chest pain, Increased palpitations (irregular heartbeat), Calf discomfort and Uncontrolled pain Suture Line Care: Avoid Pulling/Pushing and Avoid Pinching/Bending Remove Dressing in: leave until fall off (There is suture under the skin that will dissolve and glue over top. As the glue peels up it is okay to pull it off, or cut the edges with scissors) Cleanse incision/area with: Soap & Water Follow Up Care Please Follow Up With: Tosin When: 1 week initial post op to review pathology 6 weeks for an exam to see if you are clear from restrictions Test Results: Test results from this visit will be discussed in further detail at your follow-up appointment, if applicable. Discharge Plan Admission Primary Reason for Your Visit: hysterectomy Attending Provider: Jennifer Leahy Primary Care Provider: Nikolai Palomino Instructions Patient Instructions: Laparoscopic Hysterectomy Your ... Discharge Orders/Prescriptions Prescriptions: New oxycodone-acetaminophen [Percocet] 5-325 mg tablet 1 tab PO Q6H PRN (Reason: pain) 7 Days Qty: 15 RF: 0 ibuprofen 600 mg tablet 600 mg PO Q6H PRN (Reason: pain) Qty: 30 RF: 0 docusate sodium [Colace] 100 mg capsule 100 mg PO BID Qty: 30 RF: 0 Continued Daily Multivitamin-Iron Tablet 1 tab PO DAILY RF: 0 Discontinued ferrous sulfate 300 mg (60 mg iron) Tablet 300 mg PO DAILY RF: 0 Referrals / Follow Up: Nikolai Palomino MD [Primary Care Provider] - Disposition Disposition (needs filled in before D/C Order can be placed): Home, Self Care
--- NOTE | 2021-07-20 16:12 | OP.PCM_ITS ---
Problems Associated Problem List Diagnoses (1) Menorrhagia: (2) Adenomyosis: (3) Iron deficiency anemia: Report of Operation Date of Procedure: 07/20/21 Pre-Operative Diagnosis: Menorrhagia, adenomyosis, anemia Post-Operative Diagnosis: As above Surgery/Procedure Performed:: LAVH, BS, cystoscopy Description of Surgical Findings:: Boggy and enlarged uterus. Normal appearing bilateral ovaries. Bilateral hydrosalpinx with Filshie clips present occluding both tubes. Normal pelvis and pelvic CDS. Surgeon: Jennifer Leahy clamshell engineer: Scarlet Morrow Type of Anesthesia: General Special Medications: None Specimen's removed: Uterus, cervix, bilateral fallopian tubes Drains: Stevenson Estimated Blood Loss (mL): 250 Fluids Replaced: 2200 cc Description of Procedure: Patient was taken to the operating room where general anesthesia was induced. The patient was placed in dorsal lithotomy position using yellowfin stirrups. The abdomen, perineum, and vagina were prepped and draped in the usual sterile fashion. From below a Stevenson catheter was placed into the bladder. A weighted speculum was placed in the vagina to visualize the cervix. The anterior lip of the cervix was grasped with a single-tooth tenaculum. A ZUMI uterine manipulator was placed. The weighted speculum and single-tooth tenaculum were removed once uterine manipulator was placed. Attention was then turned to the abdominal portion of the case. Gloves were changed. Local anesthetic was infiltrated at all port sites. An infraumbilical incision was to was made to accommodate a 5 mm port. This port was placed under direct visualization using the laparoscope. Once confirmed intraperitoneal, CO2 infiltration was initiated for a pneumoperitoneum. Upon inspection of the abdomen, no injury was noted with entry into the abdomen. Under direct observation, 5 mm flank ports were then placed laterally on both the right and left sides. Beginning on the left side and distally along the length of the fallopian tube, the mesosalpinx was exposed after dissecting adhesions of the dilated fallopian tube to the ovary. The mesosalpinx was then sequentially clamped, ligated, and cut using the LigaSure device working alongside the length of the tube and towards the cornua. Once at the level of the cornua the tube was cut and removed along with the Filshie clip that was attached to the tube. The same process was repeated on the right. The right fallopian tube was also dilated and adhered to the right ovary. The adhesions of the fallopian tube to the ovary were dissected with some bleeding along the right ovary noted. The right mesosalpinx once exposed was sequentially clamped, ligated, and cut to remove the right fallopian tube with a Filshie clip. Monopolar cautery was then used to cauterize the area of bleeding along the ovary where the adhesions were removed. Hemostasis was noted of that ovary. The left round ligament was then ligated and cut. The anterior leaf of the broad ligament was then taken down on the left side dissecting towards the peritoneal reflection at the base of the bladder and adjacent to the cervix. The same process was then repeated on the right side so that both sides met in the anterior leaflet was appropriately skeletonized. The pedicles of the cardinal ligament were then ligated and divided on each side using LigaSure device. Attention was then turned to the vaginal aspect of the surgery. A weighted speculum was placed in the posterior aspect of the vagina to expose the cervix. The uterine manipulator was removed. The tenaculum was repositioned on the anterior lip of the cervix and posterior lip of the cervix. After infiltration of local, a circumferential incision was made at the cervical vaginal reflection using a scalpel. This was undermined first anteriorly and a colpotomy was made without difficulty. This was then repeated posteriorly and a similar colpotomy was made. Abimael retractors were then placed into each of these incisions. Beginning on the patient's left side, the uterosacral and cardinal ligament was clamped, divided, and suture ligated. 3 bites were required to reach the previous dissection margin on the left side. The same process was then repeated on the patient's right-hand side. At this point the specimen was completely freed. Once the sutures had been placed and the pedicles were secured, the uterus along with the cervix was removed through the vagina without difficulty. The bilateral fallopian tubes were previously removed. All pedicles were inspected and hemostasis was confirmed. The posterior cuff of the vagina was run with a 2-0 Vicryl. The vaginal vault was then closed using several [id number] 0 Vicryl sutures. Good hemostasis was noted. The Stevenson was then removed and a cystoscopy was performed noting a normal-appearing bladder and strong bilateral ureteral jets. The bladder was then drained. The vaginal sutures were trimmed. The sponge stick was placed in the vagina. Gloves were changed. Attention was then turned to the abdominal portion of the procedure again. The abdomen was insufflated and the laparoscope inserted. Using the laparoscopic irrigation device, the abdomen was carefully irrigated and inspected. A pedicle along the patient's right side was noted to be bleeding, as well as a pedicle on the left side. Bipolar cautery was used along the right pedicle, which was continuing to slowly bleed. Next surgical clips were used in attempt to achieve hemostasis of the right pedicle that was bleeding and of the left pedicle that was bleeding. After attempting used bipolar cautery and surgical clips, the decision was made to go vaginally to achieve hemostasis. All instruments were removed from the abdomen and the abdomen was exsufflated. We then turned our attention to the vaginal portion of the procedure again. The [id number] sutures that were placed to close the vaginal vault were removed. The pedicles were inspected vaginally and the pedicle along the patient's right that was bleeding was clamped with a right angle, and it was then suture ligated with 0 Vicryl. Hemostasis was noted. The same was performed for the pedicle that was bleeding on the patient's left-hand side. Good hemostasis was noted. The vaginal vault was then closed again with several [id number]-cr-[id number] sutures of 0 Vicryl. The sutures were trimmed. A cystoscopy was again performed noting a normal-appearing bladder and strong bilateral ureteral jets. The cystoscope was removed. The bladder was drained. A sponge stick was then placed in the vagina. Gloves were then changed and we went abdominally again. The laparoscope was inserted into the abdomen and the abdomen was insufflated. All pedicles and ovaries were inspected and good hemostasis was noted. The abdomen and pelvis was irrigated and hemostasis was still noted. Hailee was placed over the vaginal cuff and pedicles. Flank ports were removed under direct visualization. The abdomen was slowly exsufflated and still hemostasis was noted. The laparoscope was removed. The infraumbilical port was removed. The incisions were closed in a subcuticular fashion using 4-0 Monocryl. Glue was placed over the incisions. All instruments were removed from the vagina and the vaginal sweep was performed. Instrument, sponge, needle counts were co rrect. The patient was taken to the recovery room in stable condition. Dr. Morrow assisted with the entire surgery from start to finish. She assisted in draping the patient, performing the hysterectomy, and closure. Grafts/Implants Used: None Procedure Start Time: 12:47 Procedure Stop Time: 16:03 Complications None Admit VTE Documentation VTE Present on Admission: Yes VTE Mechan Device Prophylaxis: SCD's
--- NOTE | 2021-07-20 19:50 | NURSING ---
Patient ambulated in hallway with SPIRITUAL COUNSELOR- tolerated well. Patient unable to void, per patient she has the urge just unable to actully void. RN encouraged to continue drinking fluids. Will attempt again.
== END 2021-07-20 23:59 | disposition home or self-care (01) ==
LOC: SDC 09:44 → AC 09:44 → MS3 16:16
PROVIDERS: Anesthesiology; PCP Family Medicine; Referring Provider Obstetrics & Gynecology; Visit Provider Obstetrics & Gynecology
PROC: 0UT9FZZ Resection of Uterus, Via Natural or Artificial Opening With Percutaneous Endoscopic Assistance (ICD-10-PCS; CPT 58552; principal; 2021-07-20 11:45)
DX: D25.1 Intramural leiomyoma of uterus (principal); N80.0 Endometriosis of uterus; N92.0 Excessive and frequent menstruation with regular cycle; D50.9 Iron deficiency anemia, unspecified; N70.11 Chronic salpingitis
CPT/HCPCS: 58552; 00840; 52000; 36415; 81025; 82962; 83735; 85027; 85610; 85730; 86850; 86900; 86901; 87426; 88307; C9803; J7120; J2405; J3475

== ENCOUNTER 2024-07-06 00:27 | Emergency (ER) | payer BC, SELFPAY ==
[2024-07-06 00:27] VITALS: BP 153/87; PULSE 100; RESP 16; TEMP 36.1; O2SAT 100; BMI 22.1
--- NOTE | 2024-07-06 00:44 | RAD_ITS ---
PROCEDURE: CHEST 1 VIEW (PORTABLE) REASON FOR EXAM: Cough TECHNIQUE: Frontal view of the chest. COMPARISON: Reviewed. FINDINGS: The cardiac and mediastinal contours are normal. The lungs are clear. RAD/Chest 1 View (Portable) IMPRESSION: NEGATIVE SINGLE VIEW OF THE CHEST. Reading Location: [facility]
--- NOTE | 2024-07-06 00:45 | EKG12_ITS ---
Test Reason : DYSRHYTHMIA Blood Pressure : */* mmHG Vent. Rate : 95 BPM Atrial Rate : 95 BPM P-R Int : 110 ms QRS Dur : 86 ms QT Int : 366 ms P-R-T Axes : 69 44 56 degrees QTcB Int : 459 ms Sinus rhythm with short NH Otherwise normal ECG Confirmed by Win Frankel ([id number]), editor map JEF RAMOS ([id number]) on 07/06/2024 11:12:29 AM Referred By: ROBEL Confirmed By: Win Frankel
[2024-07-06 01:02] LABS: Absolute Neutrophil Count 7.5 X10^3/uL (2.0-7.7); Basophil# 0.07 X10^3/uL; Basophil% 0.6 % (0-1); Eosinophil# 0.08 X10^3/uL; Eosinophils% 0.7 % (0-5); Hematocrit 43.2 % (37-47); Hemoglobin 14.4 g/dL (12.0-15.0); Lymphocyte % 22.9 % (19-41); Mean Corp Hgb Conc 33.3 g/dL (32-36); Mean Corpuscular Hgb 29.2 pg (27.0-32.0); Mean Corpuscular Volume 87.6 fL (81-99); Mean Platelet Vol. 10.4 fl (6.2-12.0); Monocyte# 0.67 X10^3/uL; Monocyte% 6.1 % (0-10); NRBC Flagged by Analyzer 0 % (0-5); Neutrophil # 7.54 X10^3/uL (2.7-7.7); Platelet Count 241 K/mm3 (150-450); RBC Distribution Width CV 13.3 % (11.6-14.6); RBC Distribution Width SD 43.1 fl (35.1-43.9); Red Blood Count 4.93 M/mm3 (4.2-5.4); White Blood Count 10.9 K/mm3 (4.4-11.0)
--- NOTE | 2024-07-06 01:02 | ED.VIS.CHEST ---
HPI History of Present Illness Chief Complaint: Palpitations Narrative Narrative: Chief complaint and HPI: Palpitations. 49-year-old female with no significant past medical history presents for evaluation of palpitations. Patient states over the past months she has been having episodic palpitations. She states she talked to her PCP about it but no plan was arranged. She has not followed up with him. Patient states this evening while laying down to go to sleep her palpitations reoccurred. She states she had some chest tightness and shortness of breath associated with it. She states all of this has resolved and currently she is asymptomatic. She states when her palpitations occur she occasionally gets chest tightness and shortness of breath. She denies any tobacco or drug abuse. She denies any fever, chills, cough, abdominal pain, nausea, vomiting, dysuria. Patient has a history of hysterectomy. No chance of . Denies a history of DVT/PE, blood clotting disorder, recent trauma or surgery, exogenous estrogen use, unilateral leg swelling, known malignancy, travel. Patient states she does feel that her palpitations worsen when she is anxious however she states she was not anxious this evening. Review of systems: See HPI Medications: As listed on the chart Allergies: As listed on the chart PFSH: Per chart Vital signs: As listed on the chart. Reviewed. Physical exam: Gen: A&O x3, NAD but anxious Head: Normocephalic, atraumatic Eyes: No sclera icterus, conjunctiva clear ENT: Moist mucous membranes Neck: Trachea midline, No JVD CV: RRR, no murmurs, no peripheral edema Resp: Lungs CTA BL, no w/r/c GI: Abd soft, non-distended, non-tender, no r/r/g Musc: Full ROM, no deformity Skin: Warm, dry Neuro: Alert, oriented, grossly intact, sensation intact Psych: Cooperative, anxious [facility] Medical History (Updated 07/06/24 @ 03:[address] Haris Blake DO) Restless legs Non-smoker Hemorrhoids Anemia Home Medications ?Medication ?Instructions ?Recorded ?Last Taken ?Type Daily Multivitamin-Iron Tablet 1 tab PO DAILY 01/28/20 Unknown History ibuprofen 600 mg tablet 600 mg PO Q6H PRN pain #30 tabs 07/20/21 Unknown Rx Allergy/AdvReac Type Severity Reaction Status Date / Time Penicillins Allergy Rash Verified 07/06/24 00:28 Sulfa (Sulfonamide Allergy PT UNSURE Verified 07/06/24 00:28 Antibiotics) OF REACTION Family History Mother Anemia Non-Hodgkin lymphoma Father Aneurysm Surgical History Hx of colonoscopy Previous section H/O dilation and curettage Social History (Updated 08/29/20 @ 15:[address] Harmeet Llanos MD) Smoking Status: Never smoker EXAM Physical Exam Const Vital Signs: 07/06/24 00:27 07/06/24 01:27 07/06/24 02:00 Temperature 97 F L Temperature Source Oral Pulse Rate 100 79 68 Respiratory Rate 16 17 17 Blood Pressure 153/87 H 127/89 H 124/68 H Blood Pressure Mean 109 101 86 Pulse Ox 100 98 98 Oxygen Delivery Method Room Air Room Air 07/06/24 03:00 Temperature Temperature Source Pulse Rate 84 Respiratory Rate 17 Blood Pressure 137/93 H Blood Pressure Mean 107 Pulse Ox 99 Oxygen Delivery Method Room Air MDM MDM MDM Narrative Medical decision making narrative: Chief complaint and HPI: Palpitations. 49-year-old female with no significant past medical history presents for evaluation of palpitations. Palpitations have been episodic for a month. She is currently asymptomatic. On arrival patient patient is hypertensive with blood pressure 153/87. Patient is anxious and I suspect that this may not be her baseline. Differential diagnosis includes but is not limited to arrhythmia, anemia, electrolyte abnormality, hyperthyroidism. Low risk for ACS or PE. Cardiac workup ordered. EKG and chest x-ray reviewed see below. CBC without leukocytosis or anemia. D-dimer unremarkable. BMP shows mild hypokalemia of 3.1. P.o. potassium ordered. Minor renal insufficiency of 1.07. Troponin unremarkable. I do not think delta is needed at this time as patient is not having chest pain. TSH is high at 5.090. Although this is consistent with hypothyroidism and not hypothyroidism he will get free T4. Free T4 is normal. Patient has subclinical hypothyroidism. On reevaluation, patient has still not had any symptoms. No arrhythmia. At this point in time, no clear etiology for patient's palpitations. Plan is to place patient Holter monitor we do not have any available at this time therefore she will given a prescription for 1. She was educated to take her [id number] potassium replacements. Follow-up with her PCP for her thyroid function as well as hypokalemia and palpitations. Follow-up with cardiology for palpitations. She confirmed understanding of plan. Return precautions explained. EKG: Interpreted by me/EM physician: EKG shows normal sinus rhythm with short AR interval. No acute ischemic changes. Heart rate 95. Diagnostic: Interpreted by me/EM physician: Chest x-ray without pneumonia, effusion, cardiomegaly, pneumothorax Impression: 1. Palpitations 2. Subclinical hypothyroidism 3. Hypokalemia Lab Data Labs: Laboratory Results - last 24 hr 07/06/24 00:39 WBC 10.9 RBC 4.93 Hgb 14.4 Hct 43.2 MCV 87.6 MCH 29.2 MCHC 33.3 RDW Std Deviation 43.1 RDW Coeff of Marci 13.3 Plt Count 241 MPV 10.4 Immature Gran % (Auto) 0.700 Neut % (Auto) 69.0 Lymph % (Auto) 22.9 [place] % (Auto) 6.1 Eos % (Auto) 0.7 Baso % (Auto) 0.6 Absolute Neuts (auto) 7.5 Absolute Lymphs (auto) 2.50 Nucleated RBC % 0 D-Dimer Quant (PE/DVT) < 0.27 L Sodium 140 Potassium 3.1 L Chloride 107 Carbon Dioxide 26.0 Anion Gap 7 BUN 15 Creatinine 1.07 H Estim Creat Clear Calc 60.85 Est GFR (MDRD) Af Amer 71 Est GFR (MDRD) Non-Af 58 L BUN/Creatinine Ratio 14.0 Glucose 99 Calcium 8.7 Magnesium 2.2 Troponin I High Sens < 3 L TSH 5.090 H Free T4 1.45 Radiography Diagnostic Testing: Clinical Impression(s) from Imaging Studies Chest X-Ray 07/06/24 00:44 IMPRESSION: NEGATIVE SINGLE VIEW OF THE CHEST. [facility] Dis[facility] Triage Chief Complaint: Palpitations ED Provider: Haris Blake Dx/Rx/DC Orders Clinical Impression: Heart palpitations Instructions: Understanding Heart Palpitations, ED Palpitations Prescriptions: No Action Daily Multivitamin-Iron Tablet 1 tab PO DAILY ibuprofen 600 mg tablet 600 mg PO Q6H PRN (Reason: pain) Qty: 30 0RF Primary Care Provider: Nikolai Palomino Referrals: Roger Boyd MD [Med Staff - Active Staff] - 3-5 Days Nikolai Palomino MD [Primary Care Provider] - 3-5 Days Activity Restrictions/Additional Instructions: Follow-up with your primary care physician as well as cardiology for your palpitations. Follow-up with your primary care physician for your low potassium as well as thyroid function. Continue your [id number] potassium supplementation. 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 Print Language: Dominican Disposition Disposition: Home, Self Care
[2024-07-06 01:14] LABS: D-Dimer Quantitative (DVT/PE) < 0.27 FEU/ug/m (0.27-0.49)
[2024-07-06 01:26] LABS: Anion Gap 7 (5-15); BUN 15 mg/dL (7-18); Calcium,Total 8.7 mg/dL (8.5-10.1); Chloride 107 mmol/L (98-107); Creatinine, Serum 1.07 mg/dL (0.55-1.02); EST Glomerular Filtration Rate 58 mL/min (>60); Est Glom Filt Rate - Afr Amer 71 mL/min (>60); Estimated Creatinine Clearance 60.85 ml/min; Glucose 99 mg/dL (74-106); Magnesium 2.2 mg/dL (1.6-2.6); Potassium 3.1 mmol/L (3.5-5.1); Sodium Level 140 mmol/L (136-145); Troponin-I HS < 3 pg/mL (3.0-54.0)
[2024-07-06 01:27] VITALS: BP 127/89; PULSE 79; RESP 17; O2SAT 98
[2024-07-06 02:00] VITALS: BP 124/68; PULSE 68; RESP 17; O2SAT 98
[2024-07-06] MEDS: Potassium Chloride Oral Soln 20 MEQ/15 ML UDC 40 MEQ PO (02:46)
[2024-07-06 02:50] LABS: T4 Free Direct 1.45 ng/dL (0.76-1.46)
[2024-07-06 03:00] VITALS: BP 137/93; PULSE 84; RESP 17; O2SAT 99
[2024-07-06 03:19] VITALS: BP 137/93; PULSE 84; RESP 17; TEMP 37; O2SAT 99
== END 2024-07-06 03:22 | disposition home or self-care (01) ==
PROVIDERS: Emergency Provider Surgery; PCP Family Medicine; Visit Provider Surgery
DX: R00.2 Palpitations (principal); E87.6 Hypokalemia; Z90.710 Acquired absence of both cervix and uterus; E03.8 Other specified hypothyroidism
CPT/HCPCS: 71045; 80048; 83735; 84439; 84443; 84484; 85025; 85379; 93005; 99284; A4216

== ENCOUNTER → 2024-07-06 | Outpatient (CLI) | payer BC, SELFPAY | END | disposition home or self-care (01) | PROVIDERS: PCP Family Medicine; Referring Provider Internal Medicine Cardiovascular Disease; Visit Provider Internal Medicine Cardiovascular Disease | DX: Z00.00 Encounter for general adult medical examination without abnormal findings (principal) ==